=== PATIENT | female | born 2000 | race African-American/Black ===

== ENCOUNTER 2018-05-27 17:48 | Emergency (ER) | payer OTHER, SELFPAY ==
--- NOTE | 2018-05-27 19:45 | ER ---
Nurse's Notes [facility] Name: Hilda Celis Age: 17 yrs Sex: Female : 2000 Arrival Date: 05/27/2018 Time: 17:50 Bed 2 Private MD: Diagnosis: Conjunctivitis Presentation: 05/27 18:29 Presenting complaint: Patient states: Redness and slight inflammation to right eye. aj Transition of care: patient was not received from another setting of care. Onset of symptoms was May 27, 2018. Risk Assessment: Do you want to hurt yourself or someone else? Patient reports no desire to harm self or others. Initial Sepsis Screen: Does the patient meet any 2 criteria? No. Patient's initial sepsis screen is negative. Does the patient have a suspected source of infection? No. Patient's initial sepsis screen is negative. Care prior to arrival: None. 18:29 Method Of Arrival: Ambulatory aj 18:29 Acuity: JUAN 4 aj Triage Assessment: 18:30 General: Appears in no apparent distress. comfortable, Behavior is calm, cooperative, aj appropriate for age. Pain: Denies pain. EENT: Sclera/Cornea are reddened in outer aspect of conjuctiva of left eye, iris of left eye and inner aspect of conjunctiva of left eye. Neuro: Level of Consciousness is awake, alert, obeys commands, Oriented to person, place, time, situation, Appropriate for age. Respiratory: Airway is patent Respiratory effort is even, unlabored, Respiratory pattern is regular, symmetrical. Derm: Skin is intact, is healthy with good turgor, Skin is pink, warm \T\ dry. normal. 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 - Social history:: Smoking status: Patient/guardian denies using tobacco. - Ebola Screening: : Patient negative for fever greater than or equal to 101.5 degrees Fahrenheit, and additional compatible Ebola Virus Disease symptoms Patient denies exposure to infectious person Patient denies travel to an Ebola-affected area in the 21 days before illness onset No symptoms or risks identified at this time. Screenin:30 Abuse screen: Denies threats or abuse. Nutritional screening: No deficits noted. ea Tuberculosis screening: No symptoms or risk factors identified. Fall Risk None identified. Assessment: 19:28 General: Appears in no apparent distress. Behavior is calm, cooperative, appropriate ea for age. General: Pt reports the left eye felt irritated, denies pain to area at this time.. Pain: Denies pain. Neuro: Level of Consciousness is awake, alert, obeys commands, Oriented to person, place, time, situation. Cardiovascular: Patient's skin is warm and dry. Respiratory: Airway is patent Respiratory effort is even, unlabored, Respiratory pattern is regular, symmetrical. GI: No signs and/or symptoms were reported involving the gastrointestinal system. : No signs and/or symptoms were reported regarding the genitourinary system. EENT: Eyes redness noted to left eye.. Derm: No deficits noted. Musculoskeletal: Circulation, motion, and sensation intact. Vital Signs: 18:30 BP 127 / 78; Pulse 90; Resp 19; Temp 98.8; Pulse Ox 99% on R/A; Weight 44.91 kg; Height aj 5 ft. 1 in. (154.94 cm); 18:30 Body Mass Index 18.71 (44.91 kg, 154.94 cm) ED Course: 17:50 Patient arrived in ED. rg4 18:30 Triage completed. aj 18:30 Arm band placed on left wrist. Patient placed in waiting room, Patient notified of wait aj time. 19:24 Venkatesh Zaidi MD is Attending Physician. 19:24 Carissa Zaragoza, ERIC is Primary Nurse. ea 19:30 Patient has correct armband on for positive identification. Bed in low position. Call ea light in reach. 19:44 Jordan Mccord MD is Referral Physician. 19:52 No provider procedures requiring assistance completed. Patient did not have IV access lp1 during this emergency room visit. Administered Medications: No medications were administered Outcome: 19:45 Discharge ordered by . gs 19:52 Discharged to home ambulatory, with family. lp1 19:52 Condition: good 19:52 Discharge instructions given to patient, Instructed on discharge instructions, follow up and referral plans. medication usage, Demonstrated understanding of instructions, follow-up care, medications, Prescriptions given X 1. 19:53 Patient left the ED. lp1 Signatures: La Nena Mabry, RN RN aj Mecca Hernandez RN RN lp1 Alecia Rachel rg4 Carissa Zaragoza RN RN Venkatesh Johnston MD MD gs
--- NOTE | 2018-05-27 19:45 | EDPHYS ---
Physician Documentation [facility] Name: Hilda Celis Age: 17 yrs Sex: Female : 2000 Arrival Date: 05/27/2018 Time: 17:50 Bed 2 Private MD: ED Physician Venkatesh Zaidi HPI: 05/27 19:34 This 17 yrs old Black Female presents to ER via Ambulatory with complaints of Eye gs Problem. 19:34 The patient is experiencing matting or discharge, redness. Onset: The symptoms/episode gs began/occurred 2 day(s) ago. Duration: the symptoms are continuous. Aggravated by nothing. Alleviated by nothing. Associated signs and symptoms: Pertinent negatives: chills, fever. Severity of symptoms: At their worst the symptoms were moderate in the emergency department the symptoms have improved mildly. The patient has not experienced similar symptoms in the past. 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 - Social history:: Smoking status: Patient/guardian denies using tobacco. - Ebola Screening: : Patient negative for fever greater than or equal to 101.5 degrees Fahrenheit, and additional compatible Ebola Virus Disease symptoms Patient denies exposure to infectious person Patient denies travel to an Ebola-affected area in the 21 days before illness onset No symptoms or risks identified at this time. ROS: 19:34 All other systems are negative. gs Exam: 19:34 Head/Face: Normocephalic, atraumatic. ENT: Nares patent. No nasal discharge, no gs septal abnormalities noted. Tympanic membranes are normal and external auditory canals are clear. Oropharynx with no redness, swelling, or masses, exudates, or evidence of obstruction, uvula midline. Mucous membranes moist. Neck: Trachea midline, no thyromegaly or masses palpated, and no cervical lymphadenopathy. Supple, full range of motion without nuchal rigidity, or vertebral point tenderness. No Meningismus. Cardiovascular: Regular rate and rhythm with a normal S1 and S2. No gallops, murmurs, or rubs. Normal PMI, no JVD. No pulse deficits. Respiratory: Lungs have equal breath sounds bilaterally, clear to auscultation and percussion. No rales, rhonchi or wheezes noted. No increased work of breathing, no retractions or nasal flaring. Skin: Warm, dry with normal turgor. Normal color with no rashes, no lesions, and no evidence of cellulitis. Neuro: Awake and alert, GCS 15, oriented to person, place, time, and situation. Cranial nerves II-XII grossly intact. Motor strength 5/5 in all extremities. Sensory grossly intact. Cerebellar exam normal. Normal gait. 19:34 Constitutional: The patient appears alert, awake. 19:34 Eyes: Periorbital structures: swelling, that is mild, Pupils: no acute changes, Extraocular movements: no acute changes, Conjunctiva: injected, in the left eye, Corneas: are normal, Sclera: no appreciated abnormality, Anterior chamber: normal. Vital Signs: 18:30 BP 127 / 78; Pulse 90; Resp 19; Temp 98.8; Pulse Ox 99% on R/A; Weight 44.91 kg; Height aj 5 ft. 1 in. (154.94 cm); 18:30 Body Mass Index 18.71 (44.91 kg, 154.94 cm) MDM: 19:29 Patient medically screened. 19:34 Differential diagnosis: Corneal abrasion of Acute iritis of Data reviewed: vital signs, nurses notes. Response to treatment: the patient's symptoms have markedly improved after treatment, and as a result, I will discharge patient. Administered Medications: No medications were administered Disposition: 05/27/18 19:45 Discharged to Home. Impression: Conjunctivitis. - Condition is Stable. - Discharge Instructions: Bacterial Conjunctivitis. - Prescriptions for Ocuflox 0.3 % Ophthalmic Drops - instill 2 drops by OPHTHALMIC route every 6 hours for 5 days; 5 milliliter. - Work release form, Medication Reconciliation Form, Thank You Letter, Antibiotic Education, Prescription Opioid Use form. - Follow up: Jordan Mccord MD; When: 2 - 3 days; Reason: Re-evaluation by your physician. Signatures: La Nena Mabry RN RN aj Mecca Hernandez RN RN lp1 Venkatesh Zaidi MD MD Corrections: (The following items were deleted from the chart) 19:53 19:45 05/27/2018 19:45 Discharged to Home. Impression: Conjunctivitis. Condition is lp1 Stable. Forms are Medication Reconciliation Form, Thank You Letter, Antibiotic Education, Prescription Opioid Use. Follow up: Jordan Mccord; When: 2 - 3 days; Reason: Re-evaluation by your physician. gs
== END 2018-05-27 19:53 | disposition home or self-care (01) ==
LOC: ER 17:48
DX: H10.9 Unspecified conjunctivitis (principal)
CPT/HCPCS: 99282

== ENCOUNTER 2018-10-26 06:55 | Emergency (ER) | payer SELFPAY ==
--- OUTSIDE RECORDS SUMMARY | 2018-10-26 06:57 | XMS REPORT ---
:2000 [facility] Address [address] [place] [id number] Care Team Providers Name Role Phone Unavailable Unavailable Unavailable Problems This patient has no known problems. Allergies, Adverse Reactions, Alerts This patient has no known allergies or adverse reactions. Medications This patient has no known medications.
[2018-10-26] MEDS ORDERED: NA CHLORIDE 0.9% 1,000 ML ONE (07:33)
[2018-10-26 08:01] LABS: Absolute Lymphocytes (CBC) 1.4 K/uL (0.7-4.9); Absolute Monocytes 0.4 K/uL (0.1-1.3); Absolute Neutrophil 2.8 K/uL (1.8-8.0); Basophils % 0.6 % (0-1.3); Eosinophils % 0.7 % (0-4.4); Hematocrit 40.5 % (36.0-45.0); Lymphocytes % 29.5 % (15.3-44.8); MCH 30.7 pg (27.0-35.0); MCV 90.8 fL (80-100); MPV 9.4 fL (7.6-11.3); Monocytes % 8.9 % (3.3-12.3); RBC Red Blood Cell Count 4.46 M/uL (3.86-4.86)
[2018-10-26 08:13] LABS: ALT/SGPT 16 U/L (12-78); AST/SGOT 15 U/L (15-37); Albumin 3.9 g/dL (3.4-5.0); Alkaline Phosphatase 115 U/L (45-117); BUN Blood Urea Nitrogen 12 mg/dL (7-18); Bicarbonate 25 mmol/L (21-32); Bilirubin Direct 0.1 mg/dL (0-0.2); Bilirubin Total 0.4 mg/dL (0.2-1.0); Glucose Level 82 mg/dL (74-106); Lipase 92 U/L (73-393); Potassium 4.1 mmol/L (3.5-5.1); Protein, Total 7.5 g/dL (6.4-8.2); Sodium Level 138 mmol/L (136-145)
[2018-10-26] MEDS ORDERED: ONDANSETRON 4 MG/2 ML VIAL ONE (08:32)
[2018-10-26 08:41] LABS: HCG, Quantitative 67674 mIU/mL (1-3)
--- NOTE | 2018-10-26 08:53 | ER ---
Nurse's Notes [facility] Name: Hilda Celis Age: 18 yrs Sex: Female : 2000 Arrival Date: 10/26/2018 Time: 06:55 Bed 18 Private MD: Diagnosis: Abdominal tenderness; related conditions, unspecified, first trimester;Nausea;Nausea and vomiting;Threatened -small subchoronic hemorrhage;Urinary tract infection, site not specified Presentation: 10/26 07:03 Presenting complaint: Patient states: generalized abd pain and vomiting that began this ss morning. Pt reports that she is 8 weeks . Transition of care: patient was not received from another setting of care. Onset of symptoms was October 26, 2018. Risk Assessment: Do you want to hurt yourself or someone else? Patient reports no desire to harm self or others. Initial Sepsis Screen: Does the patient meet any 2 criteria? No. Patient's initial sepsis screen is negative. Does the patient have a suspected source of infection? No. Patient's initial sepsis screen is negative. Care prior to arrival: None. 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 - Social history:: Smoking status: Patient/guardian denies using tobacco. - Ebola Screening: : Patient denies exposure to infectious person Patient denies travel to an Ebola-affected area in the 21 days before illness onset. - Family history:: not pertinent. Screenin:38 Abuse screen: Denies threats or abuse. Nutritional screening: No deficits noted. em Tuberculosis screening: No symptoms or risk factors identified. Fall Risk None identified. Assessment: 07:30 General: Appears in no apparent distress. comfortable, Behavior is calm, cooperative, em Denies fever. Pain: Complains of pain in abdomen Pain currently is 8 out of 10 on a pain scale. Quality of pain is described as aching, Pain began 2 hours ago. Neuro: Level of Consciousness is awake, alert, obeys commands, Oriented to person, place, time, situation, Denies dizziness. Cardiovascular: Denies chest pain, shortness of breath, Capillary refill < 3 seconds Patient's skin is warm and dry. Respiratory: Airway is patent Respiratory effort is even, unlabored, Respiratory pattern is regular, symmetrical. GI: Abdomen is flat, Bowel sounds present X 4 quads. Abd is soft X 4 quads Abdomen is tender to palpation X 4 quads. Reports nausea, vomiting. : Urine is clear, Denies burning with urination, discharge, vaginal bleeding. EENT: No signs and/or symptoms were reported regarding the EENT system. Derm: Skin is intact, is healthy with good turgor, Skin is pink, warm \T\ dry. Musculoskeletal: Capillary refill < 3 seconds, Range of motion: intact in all extremities. 08:20 Reassessment: Patient appears in no apparent distress at this time. Patient and/or em family updated on plan of care and expected duration. Pain level reassessed. Patient is alert, oriented x 3, equal unlabored respirations, skin warm/dry/pink. reports nausea has improved, currently refuses nausea medication, provider notified, will hold medication Patient denies pain at this time. Patient states feeling better. Patient states symptoms have improved. 09:51 Reassessment: Patient appears in no apparent distress at this time. Patient and/or em family updated on plan of care and expected duration. Pain level reassessed. Patient is alert, oriented x 3, equal unlabored respirations, skin warm/dry/pink. Patient denies pain at this time. Patient states feeling better. Patient states symptoms have improved. Vital Signs: 07:03 BP 106 / 73; Pulse 81; Resp 14; Temp 98.0; Pulse Ox 100% on R/A; Weight 39.01 kg; ss Height 5 ft. 1 in. (154.94 cm); Pain 8/10; 08:27 BP 97 / 74; Pulse 68; Resp 18; Pulse Ox 100% on R/A; Pain 0/10; em 09:30 BP 105 / 73; Pulse 63; Resp 16; Pulse Ox 99% on R/A; Pain 0/10; em 07:03 Body Mass Index 16.25 (39.01 kg, 154.94 cm) ED Course: 06:55 Patient arrived in ED. ds1 07:03 Arm band placed on right wrist. ss 07:04 Triage completed. ss 07:08 Neal Franklin LVN is Primary Nurse. em 07:13 Rene Barnett MD is Attending Physician. saray 07:23 Urine collected: clean catch specimen, clear. em 07:38 Patient has correct armband on for positive identification. Placed in gown. Bed in low em position. Call light in reach. Adult w/ patient. 07:38 Initial lab(s) drawn, by me, sent to lab. Inserted saline lock: 22 gauge in right em antecubital area, using aseptic technique. Blood collected. 08:27 US Transvaginal Ob In Process Unspecified. EDMS 08:40 Ultrasound completed. Patient tolerated well. Notified ED Physician grecia. sg3 08:53 Allan Shen MD is Referral Physician. saray 09:51 No provider procedures requiring assistance completed. IV discontinued, intact, em bleeding controlled, No redness/swelling at site. Pressure dressing applied. Administered Medications: 07:37 Drug: NS 0.9% 1000 ml Route: IV; Rate: 1 bolus; Site: right antecubital; em 09:53 Follow up: IV Status: Completed infusion; IV Intake: 1000ml em 09:46 Drug: Zofran 4 mg Route: IVP; Site: right antecubital; 09:53 Follow up: Response: Medication administered at discharge. em 09:46 Drug: Rocephin - (cefTRIAXone) 1 grams Route: IVPB; Infused Over: 30 mins; Site: right ss antecubital; 09:53 Follow up: Response: Medication administered at discharge.; IV Status: Completed em infusion; IV Intake: 10ml Intake: 09:53 IV: 1000ml; Total: 1000ml. em 09:53 IV: 10ml; Total: 1010ml. em Outcome: 08:53 Discharge ordered by . saray 09:51 Discharged to home ambulatory, with family. em 09:51 Condition: good 09:51 Discharge instructions given to patient, family, Instructed on discharge instructions, follow up and referral plans. medication usage, Demonstrated understanding of instructions, follow-up care, medications, Prescriptions given X 4. 09:53 Patient left the ED. em Signatures: Dispatcher [employer] Rene Weston MD MD cha Munoz, Edgar, AUTOMATION MACHINE OPERATOR AUTOMATION MACHINE OPERATOR em David, Karin ds1 Gemma Galloway RN RN Nicole Restrepo 3 Corrections: (The following items were deleted from the chart) 08:30 07:30 GI: Abdomen is flat, Bowel sounds present X 4 quads. Abd is soft X 4 quads em Abdomen is tender to palpation X 4 quads. em
--- NOTE | 2018-10-26 08:53 | EDPHYS ---
Physician Documentation [facility] Name: Hilda Celis Age: 18 yrs Sex: Female : 2000 Arrival Date: 10/26/2018 Time: 06:55 Bed 18 Private MD: ED Physician Rene Barnett HPI: 10/26 07:47 This 18 yrs old Black Female presents to ER via Ambulatory with complaints of Abdominal saray Pain - 8 Wks Preg. 07:47 The patient presents with abdominal pain in the periumbilical area. Onset: The saray symptoms/episode began/occurred this morning, today. The patient presents to the emergency department with nausea, abdominal pain, of the right upper quadrant, left upper quadrant, right lower quadrant and left lower quadrant. Onset: The symptoms/episode began/occurred just prior to arrival, this morning, today. Possible causes: unknown, . The symptoms are aggravated by nothing. The symptoms are alleviated by food . The patient presents to the emergency department with. The estimated gestational age is 8 weeks. course: care: at a clinic, private OB physician. 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 - Social history:: Smoking status: Patient/guardian denies using tobacco. - Ebola Screening: : Patient denies exposure to infectious person Patient denies travel to an Ebola-affected area in the 21 days before illness onset. - Family history:: not pertinent. ROS: 07:47 Constitutional: Negative for fever, chills, and weight loss, Eyes: Negative for injury, saray pain, redness, and discharge, ENT: Negative for injury, pain, and discharge, Neck: Negative for injury, pain, and swelling, Cardiovascular: Negative for chest pain, palpitations, and edema, Respiratory: Negative for shortness of breath, cough, wheezing, and pleuritic chest pain, Back: Negative for injury and pain, : Negative for injury, bleeding, discharge, and swelling, MS/Extremity: Negative for injury and deformity, Skin: Negative for injury, rash, and discoloration, Neuro: Negative for headache, weakness, numbness, tingling, and seizure, Psych: Negative for depression, anxiety, suicide ideation, homicidal ideation, and hallucinations, Allergy/Immunology: Negative for hives, rash, and allergies, Endocrine: Negative for neck swelling, polydipsia, polyuria, polyphagia, and marked weight changes. 07:47 Abdomen/GI: Positive for abdominal pain, nausea and vomiting. Exam: 07:47 Constitutional: This is a well developed, well nourished patient who is awake, alert, saray and in no acute distress. Head/Face: Normocephalic, atraumatic. Eyes: Pupils equal round and reactive to light, extra-ocular motions intact. Lids and lashes normal. Conjunctiva and sclera are non-icteric and not injected. Cornea within normal limits. Periorbital areas with no swelling, redness, or edema. ENT: Nares patent. No nasal discharge, no septal abnormalities noted. Tympanic membranes are normal and external auditory canals are clear. Oropharynx with no redness, swelling, or masses, exudates, or evidence of obstruction, uvula midline. Mucous membranes moist. Neck: Trachea midline, no thyromegaly or masses palpated, and no cervical lymphadenopathy. Supple, full range of motion without nuchal rigidity, or vertebral point tenderness. No Meningismus. Chest/axilla: Normal chest wall appearance and motion. Nontender with no deformity. No lesions are appreciated. Cardiovascular: Regular rate and rhythm with a normal S1 and S2. No gallops, murmurs, or rubs. Normal PMI, no JVD. No pulse deficits. Respiratory: Lungs have equal breath sounds bilaterally, clear to auscultation and percussion. No rales, rhonchi or wheezes noted. No increased work of breathing, no retractions or nasal flaring. Back: No spinal tenderness. No costovertebral tenderness. Full range of motion. Skin: Warm, dry with normal turgor. Normal color with no rashes, no lesions, and no evidence of cellulitis. MS/ Extremity: Pulses equal, no cyanosis. Neurovascular intact. Full, normal range of motion. Neuro: Awake and alert, GCS 15, oriented to person, place, time, and situation. Cranial nerves II-XII grossly intact. Motor strength 5/5 in all extremities. Sensory grossly intact. Cerebellar exam normal. Normal gait. Psych: Awake, alert, with orientation to person, place and time. Behavior, mood, and affect are within normal limits. 07:47 Abdomen/GI: Inspection: gravid appearance, is noted, Bowel sounds: normal, Palpation: abdomen is soft and non-tender, Liver: no appreciated palpable abnormalities, Hernia: not appreciated. Vital Signs: 07:03 BP 106 / 73; Pulse 81; Resp 14; Temp 98.0; Pulse Ox 100% on R/A; Weight 39.01 kg; ss Height 5 ft. 1 in. (154.94 cm); Pain 8/10; 08:27 BP 97 / 74; Pulse 68; Resp 18; Pulse Ox 100% on R/A; Pain 0/10; em 09:30 BP 105 / 73; Pulse 63; Resp 16; Pulse Ox 99% on R/A; Pain 0/10; em 07:03 Body Mass Index 16.25 (39.01 kg, 154.94 cm) ss MDM: 07:13 Patient medically screened. [facility] 07:47 Data reviewed: vital signs, nurses notes, lab test result(s), radiologic studies, [facility] ultrasound. 10/26 07:18 Order name: Quantitative Hcg; Complete Time: 08:[address] [facility] 10/26 07:18 Order name: Abo/rh Typing [facility] 10/26 07:18 Order name: Basic Metabolic Panel; Complete Time: 08:[address] [facility] 10/26 07:18 Order name: CBC with Diff [facility] 10/26 07:18 Order name: LFT's; Complete Time: 08:[address] [facility] 10/26 07:18 Order name: Lipase; Complete Time: 08:[address] [facility] 10/26 07:18 Order name: US Transvaginal Ob [facility] 10/26 07:23 Order name: Urine Dipstick--Ancillary (enter results) 10/26 07:25 Order name: Urine --Ancillary (enter results) 10/26 08:53 Order name: Urine Culture [facility] 10/26 09:38 Order name: CBC Smear Scan EDMS 10/26 07:18 Order name: Urine Test (obtain specimen); Complete Time: 07:[address] [facility] 10/26 07:18 Order name: IV Saline Lock; Complete Time: 07:[address] [facility] 10/26 07:18 Order name: Labs collected and sent; Complete Time: 07:[address] [facility] 10/26 07:18 Order name: NPO; Complete Time: 07:[address] [facility] 10/26 07:18 Order name: Urine Dipstick-Ancillary (obtain specimen); Complete Time: 07:[address] [facility] Administered Medications: 07:37 Drug: NS 0.9% 1000 ml Route: IV; Rate: 1 bolus; Site: right antecubital; em 09:53 Follow up: IV Status: Completed infusion; IV Intake: 1000ml em 09:46 Drug: Zofran 4 mg Route: IVP; Site: right antecubital; ss 09:53 Follow up: Response: Medication administered at discharge. em :46 Drug: Rocephin - (cefTRIAXone) 1 grams Route: IVPB; Infused Over: 30 mins; Site: right ss antecubital; 09:53 Follow up: Response: Medication administered at discharge.; IV Status: Completed em infusion; IV Intake: 10ml Disposition: 10/26/18 08:53 Discharged to Home. Impression: Abdominal tenderness, related conditions, unspecified, first trimester, Nausea, Nausea and vomiting, Threatened - small subchoronic hemorrhage, Urinary tract infection, site not specified. - Condition is Stable. - Discharge Instructions: Abdominal Pain, Adult, Threatened Miscarriage, Urinary Tract Infection, Adult, First Trimester of , Vzza-xp-Phbr, Nausea and Vomiting, Adult, Wnur-kl-Sjbc, Urinary Tract Infection, Adult, Sphq-zl-Wkhh, Abdominal Pain, Adult, Vusv-nb-Lwzi, First Trimester of , Threatened Miscarriage, Nzoq-fg-Hprx, Pelvic Rest. - Prescriptions for Diclegis 10- 10 mg Oral tablet,delayed release (DR/EC) - take 1 tablet by ORAL route 3 times per day and 2 tablets at bedtime; 60 tablet. Vitamin 27- 0.8 mg Oral Tablet - take 1 tablet by ORAL route once daily; 30 tablet. Zofran 4 mg Oral Tablet - take 1 tablet by ORAL route every 12 hours As needed; 20 tablet. Augmentin 500- 125 mg Oral Tablet - take 1 tablet by ORAL route every 8 hours for 10 days; 15 tablet. - Medication Reconciliation Form, Thank You Letter, Antibiotic Education, Prescription Opioid Use form. - Follow up: Private Physician; When: 2 - 3 days; Reason: Recheck today's complaints, Continuance of care, Re-evaluation by your physician. Follow up: Allan Shen; When: 2 - 3 days; Reason: Recheck today's complaints, Re-evaluation by your physician. - Problem is new. - Symptoms have improved. Signatures: Dispatcher [employer] [facility] Rene Barnett MD MD cha Munoz, Edgar, HEARING CARE PRACTITIONER HEARING CARE PRACTITIONER Gemma Hilario RN RN ss Corrections: (The following items were deleted from the chart) 07:42 07:23 URINE FOR PROTEIN, RANDOM+CHEM UR.LAB.BRZ ordered. [facility] 09:53 08:53 10/26/2018 08:53 Discharged to Home. Impression: Abdominal tenderness; em related conditions, unspecified, first trimester; Nausea; Nausea and vomiting; Threatened - small subchoronic hemorrhage; Urinary tract infection, site not specified. Condition is Stable. Discharge Instructions: Abdominal Pain, Adult, First Trimester of , Bgjm-fk-Sqqq, Nausea and Vomiting, Adult, Nxgn-bs-Xfev, Abdominal Pain, Adult, Ymhg-bk-Uwuk, First Trimester of , Threatened Miscarriage, Threatened Miscarriage, Kyke-ob-Hdwz, Pelvic Rest. Prescriptions for Diclegis 10-10 mg Oral tablet,delayed release (DR/EC) - take 1 tablet by ORAL route 3 times per day and 2 tablets at bedtime; 60 tablet, Vitamin 27-0.8 mg Oral Tablet - take 1 tablet by ORAL route once daily; 30 tablet, Zofran 4 mg Oral Tablet - take 1 tablet by ORAL route every 12 hours As needed; 20 tablet. and Forms are Medication Reconciliation Form, Thank You Letter, Antibiotic Education, Prescription Opioid Use. Follow up: Private Physician; When: 2 - 3 days; Reason: Recheck today's complaints, Continuance of care, Re-evaluation by your physician. Follow up: Allan Shen; When: 2 - 3 days; Reason: Recheck today's complaints, Re-evaluation by your physician. Problem is new. Symptoms have improved. saray
[2018-10-26] MEDS ORDERED: CEFTRIAXONE/SWI 1gm 1 GM/10 ML SYR ONE (09:12)
[2018-10-26 09:41] LABS: Blood Morphology Comment NOT SEEN (NOT SEEN); Platelet Estimate ADEQ; Urine White Blood Cell Casts OK
--- NOTE | 2018-10-26 11:06 | RAD REPORT ---
EXAM DESCRIPTION: US - Transvaginal OB - 10/26/2018 8:37 am CLINICAL HISTORY: ABD CRAMPING, COMPARISON: No comparisons FINDINGS: A single gestational sac is seen within the uterus. The shape of the sac is within normal limits for gestational age. Within the sac is a single pole with crown-rump length of 12 mm, co rrelating to estimated gestational age of 7 weeks 0 days. Estimated date of delivery is 06/14/2019. Heart rate is 159 BPM. The placenta is not yet developed due to early gestational age. The maternal adnexa and ovaries are within normal limits. Normal Doppler blood flow was demonstrated to both ovaries. 16 x 5 mm subchorionic bleed is seen along the right aspect of the gestational sac. IMPRESSION: Single live early intrauterine gestation with estimated gestational age of 7 weeks 0 day s, REYNA 06/14/2019. 16 x 5 mm subchorionic bleed along the right aspect of the gestational sac.
[2018-10-26 11:23] LABS: Urine Blood NEGATIVE (NEG); Urine Glucose NEGATIVE (NEG); Urine Protein NEGATIVE (NEG); Urine Specific Gravity 1.015 (1.005-1.030)
[2018-10-26 20:14] LABS: Urine Specific Gravity 1.015 (1.005-1.030)
== END 2018-10-26 09:53 | disposition home or self-care (01) ==
LOC: ER 06:55
DX: O26.891 Other specified pregnancy related conditions, first trimester (principal); R10.819 Abdominal tenderness, unspecified site; O21.9 Vomiting of pregnancy, unspecified; O23.41 Unspecified infection of urinary tract in pregnancy, first trimester; O20.0 Threatened abortion; Z3A.01 Less than 8 weeks gestation of pregnancy
CPT/HCPCS: 36415; 76817; 80048; 80076; 81003; 81025; 83690; 84702; 85025; 86900; 86901; 87086; 87088; 96361; 96374; 96375; 99284; J0696; J2405; J7030

== ENCOUNTER 2019-07-08 18:12 | Emergency (ER) | payer OTHER, SELFPAY ==
--- NOTE | 2019-07-08 18:33 | EDPHYS ---
Physician Documentation [facility] Name: Hilda Celis Age: 19 yrs Sex: Female : 2000 Arrival Date: 07/08/2019 Time: 18:17 Bed 27 Private MD: ED Physician Jake Alxeandre HPI: 07/08 18:28 This 19 yrs old Black Female presents to ER via Ambulatory with complaints of Suture rn recheck. 18:28 The patient presents with feels sutures from vaginal laceration are irritated and not rn sure if needs to be removed. Hasn't followed up with OB, denies discharge or fever. . Onset: The symptoms/episode began/occurred at an unknown time. Modifying factors: The symptoms are alleviated by nothing, the symptoms are aggravated by rubbing. Severity of symptoms: At their worst the symptoms were mild, in the emergency department the symptoms are unchanged. The patient has not experienced similar symptoms in the past. The patient has been recently seen by a physician:. 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 - Social history:: Smoking status: Patient/guardian denies using tobacco. - Ebola Screening: : No symptoms or risks identified at this time. - Family history:: not pertinent. - Hospitalizations: : No recent hospitalization is reported. ROS: 18:28 Constitutional: Negative for fever, chills, and weight loss, : + vaginal irritation rn from suture Exam: 18:28 Constitutional: Thin female, no acute distress Female : Normal external genitalia. rn NO laceration or sutures identified. Patient unable to point out what she saw earlier, states now feels and looks normal. Vital Signs: 18:18 BP 149 / 99; Pulse 69; Resp 16; Temp 97.8; Pulse Ox 98% on R/A; Weight 40.82 kg; Height la1 5 ft. 1 in. (154.94 cm); 18:18 Body Mass Index 17.01 (40.82 kg, 154.94 cm) la1 MDM: 18:21 Patient medically screened. rn 18:28 Differential diagnosis: irritation from suture, broken suture. Data reviewed: vital rn signs, nurses notes, and as a result, I will discharge patient. Counseling: I had a detailed discussion with the patient and/or guardian regarding: the historical points, exam findings, and any diagnostic results supporting the discharge/admit diagnosis, the need for outpatient follow up, to return to the emergency department if symptoms worsen or persist or if there are any questions or concerns that arise at home. Special discussion: I discussed with the patient/guardian in detail that at this point there is no indication for admission to the hospital. It is understood, however, that if the symptoms persist or worsen the patient needs to return immediately for re-evaluation. Based on the history and exam findings, there is no indication for further emergent testing or inpatient evaluation. I discussed with the patient/guardian the need to see the OB Gyne specialist for further evaluation of the symptoms. ED course: Encouraged to f/u with OB for standard post- f/u. . Administered Medications: No medications were administered Disposition: 07/08/19 18:32 Discharged to Home. Impression: Encounter for general adult medical examination without abnormal findings. - Condition is Stable. - Medication Reconciliation Form, Thank You Letter, Antibiotic Education, Prescription Opioid Use form. - Follow up: Private Physician; When: As needed; Reason: Recheck today's complaints, Re-evaluation by your physician. - Problem is new. - Symptoms have improved. Signatures: Jake Alexandre MD MD rn Attema, Lee, RN RN la1 Zehra Martinez RN RN ca1 Corrections: (The following items were deleted from the chart) 18:47 18:32 07/08/2019 18:32 Discharged to Home. Impression: Encounter for general adult ca1 medical examination without abnormal findings. Condition is Stable. Forms are Medication Reconciliation Form, Thank You Letter, Antibiotic Education, Prescription Opioid Use. Follow up: Private Physician; When: As needed; Reason: Recheck today's complaints, Re-evaluation by your physician. Problem is new. Symptoms have improved. rn
--- NOTE | 2019-07-08 18:33 | ER ---
Nurse's Notes [facility] Name: Hilda Celis Age: 19 yrs Sex: Female : 2000 Arrival Date: 07/08/2019 Time: 18:17 Bed 27 Private MD: Diagnosis: Encounter for general adult medical examination without abnormal findings Presentation: 07/08 18:17 Presenting complaint: Patient states: I had an episiotomy on 05/31 and I feel like its la1 irritated. Transition of care: patient was not received from another setting of care. Onset of symptoms was July 08, 2019. Risk Assessment: Do you want to hurt yourself or someone else? Patient reports no desire to harm self or others. Initial Sepsis Screen: Does the patient meet any 2 criteria? No. Patient's initial sepsis screen is negative. Does the patient have a suspected source of infection? No. Patient's initial sepsis screen is negative. Care prior to arrival: None. 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 - Social history:: Smoking status: Patient/guardian denies using tobacco. - Ebola Screening: : No symptoms or risks identified at this time. - Family history:: not pertinent. - Hospitalizations: : No recent hospitalization is reported. Screenin:30 Abuse screen: Denies threats or abuse. Denies injuries from another. Nutritional ca1 screening: No deficits noted. Tuberculosis screening: No symptoms or risk factors identified. Fall Risk None identified. Assessment: 18:30 General: Appears in no apparent distress. comfortable, Behavior is calm, cooperative, ca1 appropriate for age. Pain: Denies pain. Neuro: Level of Consciousness is awake, alert, obeys commands, Oriented to person, place, time, situation. Cardiovascular: Heart tones S1 S2 present Capillary refill < 3 seconds Patient's skin is warm and dry. Respiratory: Airway is patent Respiratory effort is even, unlabored, Respiratory pattern is regular, symmetrical, Breath sounds are clear bilaterally. GI: Abdomen is flat, non-distended, Bowel sounds present X 4 quads. Abd is soft and non tender X 4 quads. : Genitalia appear normal. EENT: No deficits noted. No signs and/or symptoms were reported regarding the EENT system. Derm: Skin is intact, is healthy with good turgor, Skin is pink, warm \T\ dry. Musculoskeletal: Circulation, motion, and sensation intact. Capillary refill < 3 seconds, Range of motion:. Vital Signs: 18:18 BP 149 / 99; Pulse 69; Resp 16; Temp 97.8; Pulse Ox 98% on R/A; Weight 40.82 kg; Height la1 5 ft. 1 in. (154.94 cm); 18:18 Body Mass Index 17.01 (40.82 kg, 154.94 cm) la1 ED Course: 18:17 Patient arrived in ED. mr 18:18 Triage completed. la1 18:18 Arm band placed on left wrist. la1 18:21 Jake Alexandre MD is Attending Physician. rn 18:30 Patient has correct armband on for positive identification. Placed in gown. Bed in low ca1 position. Call light in reach. Side rails up X 1. Pulse ox on. NIBP on. 18:43 Zehra Martinez, RN is Primary Nurse. ca1 18:45 No provider procedures requiring assistance completed. Patient did not have IV access ca1 during this emergency room visit. Administered Medications: No medications were administered Outcome: 18:32 Discharge ordered by . rn 18:46 Discharged to home ambulatory. ca1 18:46 Condition: stable 18:46 Discharge instructions given to patient, Instructed on discharge instructions, follow up and referral plans. Demonstrated understanding of instructions, follow-up care. 18:47 Patient left the ED. ca1 Signatures: Ligia Prather Jake Alexandre MD MD rn Attema, Lee, RN RN la1 Zehra Martinez RN RN ca1
== END 2019-07-08 18:47 | disposition home or self-care (01) ==
LOC: ER 18:12
DX: Z00.00 Encounter for general adult medical examination without abnormal findings (principal); Z98.890 Other specified postprocedural states
CPT/HCPCS: 99283

== ENCOUNTER 2020-03-12 10:25 | Emergency (ER) | payer OTHER, SELFPAY ==
--- OUTSIDE RECORDS SUMMARY | 2020-03-12 10:27 | XMS REPORT ---
:2000 Author Organization [facility] t Address [address] [place] [place] [id number] Care Team Providers Name Role Phone Unavailable Unavailable Unavailable Problems This patient has no known problems. Allergies, Adverse Reactions, Alerts This patient has no known allergies or adverse reactions. Medications This patient has no known medications.
--- OUTSIDE RECORDS SUMMARY | 2020-03-12 10:28 | XMS REPORT | Summary of Care ---
:2000 Author Organization [facility] - Health Address [address] [place] [id number] Care Team Providers Name Role Phone Laura Watkins Primary Care Provider Autumn Bustillos Insurance Hmo Encounter Details Date Type Department Care Team Description 05/12/2019 Patient Secure Msg [facility] MyChart Message s Doctor Unassigned, [address] [facility] [place] [phone] [facility] [phone] [place] [address] Allergies No Known Allergiesdocumented as of this encounter (statuses as of 06/13/2019) Medications No known medicationsdocumented as of this encounter (statuses as of 06/13/2019) Active Problems Problem Noted Date Single live 06/01/2019 care and examination immediately after deli very 06/01/2019 Status post vacuum-assisted vaginal delivery 9 39 weeks gestation of 05/31/2019 Pre-eclampsia in third trimester 05/31/2019 Chlamydia infection affecting in third trime ster 05/12/2019 Sickle cell trait 01/16/2019 Insufficient weight gain during in second tr imester 01/15/2019 Supervision of high risk in third trimester 11/19/2018 Comments Yes documented as of this encounter (statuses as of 06/13/2019) Resolved Problems Problem Noted Date Resolved Date Pain of round ligament during 04/27/2019 05/31/2019 Primigravida in second trimester 11/19/2018 019 Nausea and vomiting during prior to 22 weeks 11/1901/15/2019 gestation Thrombocytopenia affecting 10/25/2018 Urinary tract infection in mother during first trimester of 10/24/2018 11/19/2018 Underweight 10/21/2018 11/19/2018 documented as of this encounter (statuses as of 06/13/2019) Immunizations Name Administration Dates Next Due Influenza Virus Vaccine Quad .5 mL IM 6+ MO 10/21/2018 Tdap 03/18/2019 documented as of this encounter Social History Tobacco Use Types Packs/Day Years Used Date Never Smoker Smokeless Tobacco: Never Used Alcohol Use Drinks/Week oz/Week Comments No Comments Yes Sex Assigned at Date Recorded Not on file Job Start Date Occupation Industry Not on file Not on file Not on file Travel History Travel Start Travel End No recent travel history available. documented as of this encounter Last Filed Vital Signs Not on filedocumented in this encounter Plan of Treatment Date Type Specialty Care Team Description 06/22/2019 Routine Visit OB Satellites Blaire Harris, PLUSH BRUSHER [address] [id number] [phone] Health Maintenance Due Date Last Done Comments PNEUMOCOCCAL 0-64 YEARS 2004 COMBINED SERIES (1 of 3 - PCV13) MENINGOCOCCAL B VACCINES (1 2008 of 2 - Risk Bexsero 2-dose series) HPV VACCINES (1 - Female 2013 3-dose series) PAP SMEAR 2019 INFLUENZA VACCINE 07/19/2019 10/21/2018 CHLAMYDIA SCREENING 05/31/2020 05/31/2019, 05/25/2019, 05/11/2019, Additional history exists DTaP,Tdap,and Td Vaccines (2 03/18/2029 03/18/2019 - Td) MENINGOCOCCAL VACCINE Aged Out No longer eligible based on patient 's age to complete this topic documented as of this encounter Results Not on filedocumented in this encounter Insurance Payer Benefit Plan / Subscriber ID Effective Phone Address T ype Group Dates [employer] 2018-Pres [address] Medicaid [facility] ent [id number] [place] [address] documented as of this encounter Advance Directives Name Relationship Healthcare Agent Relationship Co mmunication Ana Velma Parent Primary healthcare agent
--- OUTSIDE RECORDS SUMMARY | 2020-03-12 10:28 | XMS REPORT | Summary of Care ---
:2000 Author Organization [facility] Address [address] [place] [address] Care Team Providers Name Role Phone Laura Watkins Primary Care Provider Autumn Bustillos Insurance Hmo Reason for Referral (Routine) Status Reason Specialty Diagnoses / Referred By Referred To Procedures Contact Contact New Request Maternal Diagnoses Supervision of high risk , antepartum Anderson Harris Medicine Procedures CONSULT MATERNAL MEDICINE ULTRASOUND Preferred Location: [facility] [address] [place] [address] Reason for Visit Reason Comments Initial Visit Encounter Details Date Type Department Care Team Description [facility] upervision of high risk , antepartum (Primary Dx); Visit [facility] History of pre-eclampsia in prior pregna ncy, currently in first trimester; [address]; [place], [place] Sickle cell trait; [id number] [place], [place] Underweight; [phone] Nausea and vomiting during lucien or to 22 weeks gestation [phone] Allergies No Known Allergiesdocumented as of this encounter (statuses as of 01/28/2020) Medications Medication Sig Dispensed Refills Start Date End Date Status vit Take 1 Packet 30 Each 6 01/28/2020 Ac tive [id number]-ykxcy-dha by mouth (SELECT-OB + DHA) 29 daily. mg iron-1 mg -250 mg combo packIndications: Supervision of high risk , antepartum CITRANATAL 90 DHA, TK 1 PACKET 9 05/11/2019 01/28/20 20 Discontinued ALGAL OIL, 90 mg PO QD iron-1 mg -50 mg-300 mg combo pack acetaminophen 325 mg Take 2 0 2019 01/28/20 20 Discontinued tabletIndications: tablets by 39 weeks gestation mouth every 6 of , (six) hours Pre-eclampsia in as needed for third trimester, Pain (scale care and 1-3). examination immediately after delivery benzocaine-menthol, Apply to 56 g 0 2019 0 Discontinued DERMOPLAST, 20-0.5 % area(s) as topical needed sprayIndications: 39 (Perineum weeks gestation of discomfort). , Pre-eclampsia in third trimester, care and examination immediately after delivery ibuprofen 600 mg Take 1 tablet 30 tablet 1 2019 01/28/20 20 Discontinued tabletIndications: by mouth 39 weeks gestation every 6 (six) of , hours as Pre-eclampsia in needed for third trimester, Pain (scale care and 4-6). examination immediately after delivery NIFEdipine ER 30 mg Take 1 tablet 30 tablet 1 06/03/201901/27 Discontinued tabletIndications: by mouth 39 weeks gestation daily. of , Pre-eclampsia in third trimester, care and examination immediately after delivery documented as of this encounter (statuses as of 01/28/2020) Active Problems Problem Noted Date Multiparity 01/28/2020 History of pre-eclampsia in prior , currently in first 01/28/2020 trimester Sickle cell trait 01/16/2019 Supervision of high risk , antepartum 019 Nausea and vomiting during prior to 22 weeks gestation 11/19/2018 Underweight 10/21/2018 Estimated Date of Delivery Comments Yes 08/24/2020 Based on last menstr ual period of 11/18/2019 (Exact Date) documented as of this encounter (statuses as of 01/28/2020) Resolved Problems Problem Noted Date Resolved Date Single live 06/01/2019 01/28/2020 care and examination immediately after delivery 0 06/01/2019 01/28/2020 Status post vacuum-assisted vaginal delivery 06/01/2019 01/28/2020 39 weeks gestation of 05/31/2019 01/28/20 20 Pre-eclampsia in third trimester 05/31/2019 020 Chlamydia infection affecting in third trimester 0 05/12/2019 01/28/2020 Pain of round ligament during 04/27/2019 05/31/2019 Insufficient weight gain during in second 01/15/20 19 01/28/2020 trimester Primigravida in second trimester 11/19/2018 019 Thrombocytopenia affecting 10/25/2018 Urinary tract infection in mother during first trimester of 10/24/2018 11/19/2018 documented as of this encounter (statuses as of 01/28/2020) Immunizations Name Administration Dates Next Due Influenza Virus Vaccine Quad .5 mL IM 6+ MO 01/28/2020, 02/2018 Tdap 03/18/2019 documented as of this encounter Social History Tobacco Use Types Packs/Day Years Used Date Never Smoker Smokeless Tobacco: Never Used Alcohol Use Drinks/Week oz/Week Comments No Estimated Date of Delivery Comments Yes 08/24/2020 Based on last menstr ual period of 11/18/2019 (Exact Date) Sex Assigned at Date Recorded Not on file Job Start Date Occupation Industry Not on file Not on file Not on file Travel History Travel Start Travel End No recent travel history available. documented as of this encounter Last Filed Vital Signs Vital Sign Reading Time Taken Comments Blood Pressure 115/79 01/28/2020 8:58 AM CDT Pulse 66 01/28/2020 8:58 AM CDT Temperature 36.3 C (97.4 F) 01/28/2020 8:58 AM CDT Respiratory Rate 16 01/28/2020 8:58 AM CDT Oxygen Saturation - - Inhaled Oxygen Concentration - - Weight 38.8 kg (85 lb 9 oz) 01/28/2020 8:58 AM CDT Height 154.9 cm (5' 1") 01/28/2020 8:58 AM CDT Body Mass Index 16.17 01/28/2020 8:58 AM CDT documented in this encounter Patient Instructions Patient InstructionsOpal Estevez, ERIC - 01/28/2020 8:00 AM CDT Clinical Breast Exam Many health organizations recommend a yearly clinical breast exam. This exam may be done by a senior producer, family healthcare provider, nurse practitioner, nurse outreach specialist, or specially trained nurse. Yearly breast exams help tomake surethat breast conditions are found early. Your healthcare providers role A healthcare professional knows the tests and follow-up care needed if a problem is found. Your clinical exam is also a great time to ask questions about breast self-exams. You can find out if yourechecking your breasts in the best way. Or you may want to ask how , breast implants, or breast reduction surgery affect the way you should check your breasts. Diagnostic tests If a clinical exam reveals a breast change, you may have other tests to find out more. These tests may include: Mammography. A low-dose X-ray of your breast tissue. Ultrasound. An imaging test that uses sound waves to create images of your breast. Biopsy. A small amount of breast tissue is removed by needle or by a cut (incision). The tissue is then checked under a microscope. Guidelines for having clinical breast exams The [employer] recommends that starting at age 29, you should have a clinical breast exam every 1 to 3 years. After age 40, have a clinical breast exam each year. If youre at higher risk for breast cancer, you may need exams more often. Risk factors for breast cancer may include: Being over 50 or postmenopausal Having a family history of breast cancer Having the BRCA1 or BRCA2 gene mutation or certain other gene mutations Having more menstrual periods due to starting menstruation early(before age 12) or having a late menopause (after age 55) Having no pregnancies Having a first after age 30 Being obese Having a history of radiation treatment to your chest area Exposure to STORMY during your mother's Not being active Drinking too much alcohol Having dense breast tissue Taking hormone therapy after menopause Other health organizations have different recommendations. Talk with your healthcare provider about what is best for you. [employer] last reviewed this educational content on 06/18/201719990589-0313 [employer]. [address] [place] [address], [place] [address]. All rights reserved. This information is not intended as a substitute for professional medical care. Always follow your healthcare professional's instructions. Breast Health: Breast Self-Awareness What is breast self-awareness? Breast self-awareness is knowing how your breasts normally look and feel. Your breasts change as yougo through different stages of your life. So its important to learn what is normal for your breasts. Knowing about your breasts helps you spot any changes in them right away. Tell your healthcare provider about any changes. Why is breast self-awareness important? Many experts now say that women should focus on breast self-awareness instead of doing a breast self-examination (BSE). These experts include the [employer] and the [employer]. Some experts even advise not teaching women to do a BSE. Thats because research hasnt shown a clear benefit to doing BSEs. Breast self-awareness is different than a BSE. It isnt about following a certain method and schedule. Its about knowing what's normal for your breasts. That way you can spot even small changes right away. If you see any changes, tell your healthcare provider. Changes to look for Call your healthcare provider if you find any changes in your breasts that worry you. These changes may be: A lump Nipple discharge other than breastmilk, especially if it's bloody Swelling A change in size or shape Skin changes, such as redness, thickening, or dimpling of the skin Swollen lymph nodes in the armpit Nipple problems, such as pain or redness If you find a lump Call your provider if you find lumpiness in one breast. Also call if you feel something different inthe tissue or feel a definite lump. Sometimes lumpiness may be due to menstrual changes. But there may be reason for concern. Your provider may want to see you right away if you have: Nipple discharge that is bloody Skin changes on your breast, such as dimpling or puckering Its okay to be upset if you find a lump. Be sure to call your provider right away. Remember that most breast lumps are benign. This means they are not cancer. [employer]page last reviewed this educational content on 06/18/201719990779-8146 [employer]. [address] [place] [address], [place] [address]. All rights reserved. This information is not intended as a substitute for professional medical care. Always follow your healthcare professional's instructions. Understanding STDs When it comes to sex, nothing is risk-free. Any sexual contact with the penis, vagina, anus, or mouth can spread a sexually transmitted disease (STD). The only sure way to prevent STDs is abstinence (not having sex). But there are ways to make sex safer. Use a latex condom each time you have sex. And choose your partner wisely. Use condoms for safer sex If you have sex, latex condoms provide the best protection against STDs. Latex condoms stop the exchange of body fluids that carry certain STDs. They also limit contact with affected skin. Be aware though, a condom doesnt cover all skin. So, affected skin that is not covered can still transfer disease. But youre safer with a condom than without one. Use a condom even if you use other control. While control methods like the pill or IUD help prevent , they do not protect against STDs. Choose the right condom Condoms made of latex prevent disease best. If youre allergic to latex, use polyurethane condoms instead. Male condoms fit over the penis. Female condoms line the vagina. Before buying a condom, read the label to be sure it prevents disease. Some novelty condoms dont. The right lubricant helps Buy lubricated condoms or use lubricant. This provides greater comfort and reduces the risk of condom breakage. Use only water-based lubricants. Dont use oil, lotion, or petroleum jelly. They can weaken the condom, causing breakage. Also, you may want to choose lubricants without nonoxynol-9. Its now known that this spermicide does not prevent disease and may cause irritation. Use condoms correctly For condoms to work, they must be used the right way. Keep these tips in mind: Use a new latex condom each time you have sex. Slip the condom on the penis before any contact ismade. When ready to withdraw, hold the rim of the condom as the penis pulls out. This prevents the condom from slipping off. Check the expiration date before using a condom. Dont store condoms in places that can get hot, such as a car or a wallet that is carried in a back pocket. Get to know your partner Safer sex is a process. It involves getting to know your partner and making informed choices. Ask each other how many partners you have had in the past, and how many you have now. Find out if either ofyou has an STD. If you decide to have sex, use a condom each time. Dont stop using condoms unlessyoure sure neither of you has other partners and youve both been tested to confirm you donthave STDs. Then stay free of disease by having sex only with each other (monogamy). Keep your cool Dont let alcohol or drugs cloud your judgment. They could lead you to have sex with someone you wouldnt have chosen if you were sober. Or, you might forget to use a condom. If you do plan to havesex, keep a latex condom with you. Dont wait until youre in the heat of passion to try to findone. Consider abstinence The only way to be sure you wont get an STD is to abstain from sex. Abstinence is a choice that many people make at some point in their lives. Maybe you want to wait until you are sure youre ready before you have sex. Maybe youd like a break from the responsibilities of sex for a while. Or maybe you just want to know your partner better before taking the next step. Abstinence is a choice youcan make now to protect your future. Specpage last reviewed this educational content on 10/18/201619994365-5017 [employer]. [address] [place] [address]. All rights reserved. This information is not intended as a substitute for professional medical care. Always follow your healthcare professional's instructions. Understanding HIV and AIDS It's important to know how HIV can get into your body and what happens once its there. Then youll be better prepared to protect yourself or others against this virus. A person with HIV can look and feel perfectly healthy. But that person can give HIV to others as soon as he or she is infected with the virus. Having unsafe or unprotected sex or sharing needles puts you at risk for HIV. Talk with your healthcare provider about ways to protect yourself or a loved one from getting HIV. How HIV infection progresses After HIV enters the body, it attacks the immune system in the stages below. A person with HIV can infect others once the virus gets into the blood. HIV with no symptoms. A person with HIV may have no symptoms for years. The only sign of infection may be a positive blood test for HIV 2 weeks to 3 months or later after HIV enters the body. HIV with symptoms. Some people develop an illness similar to mono (mononucleosis) 2 to 4 weeks after the virus enters the body. This is called acute retroviral syndrome. Symptoms may include swollen lymph glands, chills, fever, night sweats, weakness, weight loss, skin rashes, mouth ulcers, or sore t hroat. Symptoms may be mild or the person can feel quite sick. Even without treatment the symptoms almost always go away in a few days or up to 2 to 3 weeks. Then the person has no symptoms, often for years. But over time the immune system starts to get weaker and symptoms start appearing. People at this stage may have a yeast infection in the mouth (oral thrush), shingles, skin problems, pneumonia, diarrhea that keeps coming back, or weight loss. AIDS. AIDS is the most advanced stage of HIV infection, when the immune system is severely weakened.Certain rare diseases and cancers that normally would not occur, now can occur because the body can no longer fight them well enough. It is often these diseases that cause in people with AIDS. HIV may also directly attack the brain and nervous system. This causes seizures and loss of memory and body movement. It also affects many other parts of the body. This leads to problems such as anemia, low white blood cell count, diarrhea, belly pain, skin problems, and many others. How HIV enters the body HIV is carried in semen, vaginal fluid, blood, and breastmilk. During sex, HIV can enter the body. It gets in through the fragile tissue and linings, sores, or cuts in or around the vagina, penis, anus, and mouth. During drug use, tattooing, or body piercing, the virus can enter the blood through an infected needle. A mother who has HIV can infect her child during , childbirth, and . Specpage last reviewed this educational content on 04/18/201919997693-8162 The [employer]. [address] [place] [address]. All rights reserved. This information is not intended as a substitute for professional medical care. Always follow your healthcare professional's instructions. The Range of Pap Test Results When your Pap test is sent to the lab, the lab studies your cell samples and reports any abnormal cell changes. Your healthcare provider can discuss these changes with you. In some cases, an abnormal Pap test is due to an infection. More serious cell changes range from dysplasia to cancer. Talk to your healthcare provider about your Pap test. Normal results Cervical cells, even normal ones, are always changing. As they mature, normal squamous cells move from deeper layers within the cervix. Over time, these cells flatten and cover the surface of the cervix. Within the cervical canal, the cells are different. These glandular cells are taller and not as flat as the cells on the surface of the cervix. When a Pap test sample shows healthy cells of both types, the results are negative. Keep having Pap tests as often as directed. Abnormal results A positive Pap test result means some cells in the sample showed abnormal changes. These results aregrouped by the type of cell change and the location, or extent, of the changes. Depending on the results, you may need further testing. Inflammation. Noncancerous changes are present. They may be due to normal cell repair. Or, they may be caused by an infection, such as HPV or yeast. Further testing may be needed. (Also called reactive cellular changes.) Atypical squamous cells. Test results are unclear. Cells on the surface of the cervix show changes, but their significance is not yet known. Testing for HPV and other sexually transmitted infections(STIs) may be needed. Treatment may be required. (Reported as ASC-US or ASC-H.) Atypical glandular cells. Cells lining the cervical canal show abnormal changes. Further testing is likely. You may also have treatment to destroy or remove problem cells. (Reported as AGC.) Mild dysplasia. Cells show distinct changes. More testing or HPV typing may be done. You may alsohave treatment to destroy or remove problem cells. (Reported as low-grade ASHLY or GABRIEL 1.) Moderate to severe dysplasia. Cells show precancerous changes. Or, noninvasive cancer (carcinoma in situ) may be present. Treatment to destroy or remove problem cells is likely. (Reported as high-grade ASHLY or GABRIEL 2 or GABRIEL 3.) Cancer. Different types of cancer may be detected by your Pap test. More tests to assess the cancer's extent are likely. The type of treatment will depend on the test results and other factors, suchas age and health history. (Reported as squamous cell carcinoma, endocervical adenocarcinoma in situ, or adenocarcinoma.) Specpage last reviewed this educational content on 06/18/201719998379-1953 The [employer]. [address] [place] [address], [place] [address]. All rights reserved. This information is not intended as a substitute for professional medical care. Always follow your healthcare professional's instructions. Understanding USDA MyPlate The [employer] (U.S. Department of Agriculture) has guidelines to help you make healthy food choices. These are called MyPlate. MyPlate shows the food groups that make up healthy meals using the image of a place setting. Before you eat, think about the healthiest choices for what to put onto your plate or into your cup or bowl. To learn more about building a healthy plate, visit www.choosemyplate.gov. The food groups Fruits. Any fruit or 100% fruit juice counts as part of the Fruit Group. Fruits may be fresh, canned, frozen, or dried, and may be whole, cut-up, or pureed. Make half your plate fruits and vegetables. Vegetables. Any vegetable or 100% vegetable juice counts as a member of the Vegetable Group. Vegetables may be fresh, frozen, canned, or dried. They can be served raw or cooked and may be whole, cut-up, or mashed. Make half your plate fruits and vegetables. Grains. All foods made from grains are part of the Grains Group. These include wheat, rice, oats,cornmeal, and barley such as bread, pasta, oatmeal, cereal, tortillas, and grits. Grains should be no more than a quarter of your plate. At least half of your grains should be whole grains. Protein. This group includes meat, poultry, seafood, beans and peas, eggs, processed soy products(like tofu), nuts (including nut butters), and seeds. Make protein choices no more than a quarter ofyour plate. Meat and poultry choices should be lean or low fat. Dairy. All fluid milk products and foods made from milk that contain calcium, like yogurt and cheese, are part of the Dairy Group. (Foods that have little calcium, such as cream, butter, and cream cheese, are not part of the group.) Most dairy choices should be low-fat or fat-free. Oils. These are fats that are liquid at room temperature. They include canola, corn, olive, soybean, and sunflower oil. Foods that are mainly oil include mayonnaise, certain salad dressings, and soft margarines. You should have only 5 to 7 teaspoons of oils a day. You probably already get this muchfrom the food you eat. [employer] last reviewed this educational content on 06/18/201719996201-1499 [employer]. [address] [place] [address]. All rights reserved. This information is not intended as a substitute for professional medical care. Always follow your healthcare professional's instructions. documented in this encounter [employer] Anderson Harris, [employer] MATERIALS ENGINEER - 01/28/2020 8:00 AM CDT Chief complaint: Chief Complaint Patient presents with Initial Visit HPI CC: Initial Visit Hilda Celis is a 19 year old, , Black or female. Patient's last menstrual period was 11/18/2019 (exact date). She is 10w1d with an intrauterine . Her Estimated Date of Delivery: 08/24/20. She is being seen today for her first obstetrical visit. Patient complains of nausea and vomiting. She reports +FM and denies contractions, LOF and bleeding today. Patient denies current or past physical, sexual or emotional abuse. OB History Para Term AB Living 2 1 1 1 SAB TAB Ectopic Multiple Live Births 0 1 # Outcome Date GA Lbr [place]/2nd Weight Sex Delivery Anes PTL Lv 2 Current 1 Term 05/31/19 39w0d 5 lb 11.7 oz (2.6 kg) M Vag-Vacuum EPI N GM Complications: Other (See Comments), Histories OB History Para Term AB Living 2 1 1 1 SAB TAB Ectopic Multiple Live Births 0 1 # Outcome Date GA Lbr [place]/2nd Weight Sex Delivery Anes PTL Lv 2 Current 1 Term 05/31/19 39w0d 5 lb 11.7 oz (2.6 kg) M Vag-Vacuum EPI N GM Complications: Other (See Comments), Past Medical History: Diagnosis Date Chlamydia infection affecting in third trimester 05/12/2019 Pre-eclampsia in third trimester 05/31/2019 Primigravida in second trimester 11/19/2018 STD (sexually transmitted disease) hx of chlamydia treated in 2015 Thrombocytopenia affecting 10/25/2018 Family History Problem Relation Age of Onset No Significant Medical Problems Mother No Significant Medical Problems Father Arthritis NoFHx Asthma NoFHx defects NoFHx Breast Cancer NoFHx Colon Cancer NoFHx Ovarian Cancer NoFHx Uterine Cancer NoFHx Cancer NoFHx Depression NoFHx Diabetes NoFHx Genetic NoFHx High cholesterol NoFHx Heart NoFHx Hypertension NoFHx Mental retardation NoFHx Psychiatry NoFHx Osteoporosis NoFHx Neurological NoFHx Family Status Relation Name Status Mo (Not Specified) Fa (Not Specified) NoFHx (Not Specified) History reviewed. No pertinent surgical history. Social History Socioeconomic History Marital status: Single Spouse name: Not on file Number of children: Not on file Years of education: Not on file Highest education level: Not on file Occupational History Not on file Social Needs Financial resource strain: Not on file Food insecurity: Worry: Not on file Inability: Not on file Transportation needs: Medical: Not on file Non-medical: Not on file Tobacco Use Smoking status: Never Smoker Smokeless tobacco: Never Used Substance and Sexual Activity Alcohol use: No Drug use: No Sexual activity: Yes Partners: Male control/protection: None Comment: last sexual intercourse 11/14/2019 Lifestyle Physical activity: Days per week: Not on file Minutes per session: Not on file Stress: Not on file Relationships Social connections: Talks on phone: Not on file Gets together: Not on file Attends episcopal service: Not on file Active member of club or organization: Not on file Attends meetings of clubs or organizations: Not on file Relationship status: Not on file Intimate partner violence: Fear of current or ex partner: Not on file Emotionally abused: Not on file Physically abused: Not on file Forced sexual activity: Not on file Other Topics Concern Not on file Social History Narrative Pt lives with mother and child. Pt denies history of abuse. Social History Substance and Sexual Activity Sexual Activity Yes Partners: Male control/protection: None Comment: last sexual intercourse 11/14/2019 Genetic Screen Autism / Mental Retardation: No Hossein Disease: No Congenital Heart Defect: No Cystic Fibrosis: No Down Syndrome: No Familial Dysautonomia: No Hemophilia or other Blood Disorders: No Claudia Chorea: No Maternal Metabolic Disorder--specify (eg. Type 1 Diabetes, PKU): No Muscular Dystrophy: No Neural Tube Defect: No Recurrent Loss or a Stillbirth: No Sickle Cell Disease or Trait: (!) Yes(son) Héctor Sachs: No Teratological Substances (specify type & strength/dose) since LMP: No Thalassemia: No Other Inherited Genetic or Chromosomal Disorder (specify): No Defects Not Listed (specify): no No Significant History of Genetic Disorders: No Significant History of Genetic Disorders Labs Labs are pending. Radiology No new radiology. Allergies Darleccia has No Known Allergies. Medications Hilda has a current medication list which includes the following prescription(s): vit 34-shqs-ubaom-dha. Review of Systems Constitutional: Negative for activity change, appetite change, fatigue, unexpected weight change, weight gain and weight loss. HENT: Negative for sore throat. Eyes: Negative for visual disturbance. Respiratory: Negative for cough and shortness of breath. Breasts: Negative for discharge, mass, pain and unequal size. Cardiovascular: Negative for chest pain, palpitations and leg swelling. Gastrointestinal: Positive for nausea and vomiting. Negative for abdominal pain, anal bleeding, blood in stool, constipation, diarrhea and rectal pain. Genitourinary: Negative for bladder incontinence, dysuria, urgency, flank pain, vaginal bleeding, vaginal discharge, genital sores, vaginal pain and pelvic pain. Skin: Negative for color change and rash. Neurological: Negative. Negative for dizziness, syncope and headaches. Psychiatric/Behavioral: Negative for confusion, self-injury and sleep disturbance. The patient is not nervous/anxious. Hematological: Negative for cold intolerance and heat intolerance. Endocrine: Negative for hair loss, cold intolerance, heat intolerance, weight gain and weight loss. BP 115/79 (BP Location: Right arm, Patient Position: Sitting, BP CUFF SIZE: Adult Medium) | Pulse 66 | Temp 36.3 C (97.4 F) (Oral) | Resp 16 | Ht 5' 1" (1.549 m) | Wt 85 lb 9 oz (38.8 kg) | LMP 11/18/2019 (Exact Date) | BMI 16.17 kg/m Pregravid BMI: Could not be calculated Physical Exam Vitals reviewed. Constitutional: She is oriented to person, place, and time. She appears well- developed, well-nourished and well-groomed. She has no deformities. Neck: No tenderness and no mass. No thyroid nodules and no thyromegaly palpated. Cardiovascular: Regular rate and rhythm. No murmur auscultated. Pulmonary/Chest: Breath sounds clear to auscultation. Normal inspiratory effort. Abdominal: Abdomen is soft. No mass palpated. No tenderness present. There is no guarding. Neuro/Psychiatric: She has a normal mood and affect. She is oriented to person, place, and time. Skin: Skin normal. No lesion and no rash present. Tattoo present on left thigh Breast: Right breast exhibits no mass, no nipple discharge and no tenderness. Left breast exhibits no mass, no nipple discharge and no tenderness. Normal left breast and normal right breast Rectal: normal rectum External genitalia: Normal external genitalia appropriate for age. Normal hair distribution. No labial lesion. Graduate Teaching Associate present for the exam: JOYCE [employer] student Vagina:Normal vagina. No lesion inspected. No abnormal vaginal discharge found. Cervix: Normal cervix. No lesion. No tenderness and no discharge present. Closed/50/-3 Uterus: Uterus is normal size and non-tender. 8cm Normal uterus Adnexa: Right adnexa without tenderness or mass. Left adnexa without tenderness or mass. Normal leftadnexa and normal right adnexa Anus/perineum: Normal perineum. PHYSICAL: General Exam: HEENT: Normal Thyroid: Normal Lymph Node: Normal Neurological: Normal Abdomen: Normal Skin: Normal Extremities: Normal Pelvic Exam: Vulva: Normal Vagina: Normal Graduate Teaching Associate present for the exam: JOYCE [employer] student present Cervix: Normal Uterus: 8cm Weeks Adnexa: Normal Spines: Average Sacrum: Concave Subpubic Arch: Normal Assessment/Plan Supervision of high risk , antepartum (primary encounter diagnosis) History of pre-eclampsia in prior , currently in first trimester Multiparity Comment: Routine Visit Plan: POCT TEST, POCT URINALYSIS W/O SPECIFIC GRAVITY, CBC WITH DIFF, GC & CHLAMYDIA AMPLIFIED ASSAY, HEPATITIS B SURFACE ANTIGEN, HIV 1/2 AG-AB WITH REFLEX, POCT URINALYSIS W SPECIFIC GRAVITY, WORKUP, BLOOD BANK, RUBELLA SCREEN (FENG) IGG, GALV ONLY - SYPHILIS IGG/IGM, URINE CULTURE, VZV ANTIBODY SCREEN, CONSULT MATERNAL MEDICINE ULTRASOUND Preferred Location: [facility] vit 09-ovaz-vlvtq-dha (SELECT-OB + DHA) 29 mg iron-1 mg -250 mg combo pack, PAP Smear-Liquid Based, FLU VACC([id number]), 6+ MONTHS, IM, QUAD (FLUZONE/FLULAVAL/FLUARIX) Denies zika virus risk, signs and symptoms such as fever,rash,joint pain, conjunctivitis (red eyes), muscle pain, headaches; outside [place] travel to areas affected by zika, and FOB exposure to zika.Educated on use of mosquito repellent. Sickle cell trait Comment: H/O sickle cell trait Plan:will need urine culture at every visit Underweight Comment: BMI: 16.17 Plan: patient educated eating every 2-3 hours for proper growth. Nausea and vomiting during prior to 22 weeks gestation Comment: patient complains of nausea and vomiting Plan: patient given resources for taking OTC. Return to clinic in 4 weeks. Discussed treatment options. Medications as ordered. Reviewed patient instructions and provided printed copy. This visit did not involve counseling and coordination that comprised more than 50% of the visit time. LUCA Gonzalez 01/28/2020 11:57 AM Oapl Estevez RN - 01/28/2020 8:00 AM CDTPatient is 19 year old female here for current . Patient is . 1) Previous delivery methods vaginal 2) Patient is not experiencing cramping 3) Patient is not experiencing bleeding. 4) LMP 11/18/2019 5) Last Pap was: N/a Results: N/a 6) Have you had a flu vaccine this season? Desires today 7) PPD candidate? no 8) Patient complains of Constipation 9) Patient denies history of physical, emotional, or sexual abuse. Patient states she currently feels safe at home. documented in this encounter Plan of Treatment Date Type Specialty Care Team Description 01/29/2020 Carton Marker Machine Visit [facility] Lab, [facility] 02/29/2020 Routine Visit OB [facility]ell[facility] Blaire Harris FNP [address] [address] [phone] Name Type Priority Associated Diagnoses Order S chedule CBC WITH DIFF LAB Routine Supervision of high risk Ex pected: 01/28/2020, , antepartum s: 01/27/2021 GC & CHLAMYDIA LAB Routine Supervision of high risk E xpected: 01/28/2020, AMPLIFIED ASSAY , antepartum Exp ires: 01/27/2021 HEPATITIS B SURFACE LAB Routine Supervision of high r isk Expected: 01/28/2020, ANTIGEN , antepartum s: 01/27/2021 HIV 1/2 AG-AB WITH LAB Routine Supervision of high ri sk Ordered: 01/28/2020 REFLEX , antepartum POCT URINALYSIS W LAB Routine Supervision of high ris k 20 Occurrences starting SPECIFIC GRAVITY , antepartum until 11/23/2020 WORKUP, BLOOD LAB Routine Supervision of hig h risk Expected: 01/28/2020, BANK , antepartum s: 01/27/2021 RUBELLA SCREEN (FENG) LAB Routine Supervision of hig h risk Expected: 01/28/2020, IGG , antepartum s: 01/27/2021 GALV ONLY - SYPHILIS LAB Routine Supervision of high risk Expected: 01/28/2020, IGG/IGM , antepartum s: 01/27/2021 URINE CULTURE LAB Routine Supervision of high risk Ex pected: 01/28/2020, , antepartum s: 01/27/2021 VZV ANTIBODY SCREEN LAB Routine Supervision of high r isk Expected: 01/28/2020, , antepartum s: 01/27/2021 PAP Smear-Liquid Based LAB Routine Supervision of hig h risk Expected: 01/28/2020, , antepartum s: 01/27/2021 Health Maintenance Due Date Last Done Comments CHLAMYDIA SCREENING 05/31/2020 05/31/2019, 05/25/2019, 05/11/2019, Additional history exists HPV VACCINES (1 - Female 01/18/2021 Postpon ed from 2-dose series) 2009 (Preg nant or ) WELL CARE VISIT: -01/26/2021 Postponed from YEARS (yearly) 2010 (Preg nant or ) MENINGOCOCCAL B VACCINES (1 01/27/2021 Post poned from of 2 - Risk Bexsero 2-dose 06/02 ( or series) ) PAP SMEAR 01/27/2023 01/28/2020 DTaP,Tdap,and Td Vaccines 03/18/2029 03/18/2019 (2 - Td) INFLUENZA VACCINE Completed 01/28/2020, 10/21/2018 MENINGOCOCCAL VACCINE Aged Out No longer eligible based on patient 's age to complete this topic PNEUMOCOCCAL 0-64 YEARS Aged Out No longe r eligible COMBINED SERIES based on patient 's age to complete this topic documented as of this encounter Procedures Procedure Name Priority Date/Time Associated Diagnosis Comme nts FLU VACC Routine 01/28/2020 10:31 Supervision of high ([id number]), 6+ AM CDT risk , MONTHS, IM, QUAD antepartum POCT URINALYSIS W/O Routine 01/28/2020 8:53 Supervision of hi gh Results for this SPECIFIC GRAVITY AM CDT risk , procedur e are in antepartum the results section. POCT TEST Routine 01/28/2020 8:53 Supervision of hi gh Results for this AM CDT risk , procedure ar e in antepartum the results section. documented in this encounter Results POCT URINALYSIS W/O SPECIFIC GRAVITY (01/28/2020 8:53 AM CDT) Pathologist Sig nature POCT PH U 6 5 - 8 mg/dl POCT U LEUK EST Trace Negative - Negative POCT U NIT Neg Negative - Negative POCT U PROT Trace Negative - Negative POCT U GLU Neg Negative - Negative POCT U KETONE None Negative - Negative POCT U BLD Neg Negative - Negative Specimen Urine - URINE, CLEAN CATCH POCT TEST (01/28/2020 8:53 AM CDT) Pathologist Sig nature POCT PREG Positive On board controls acceptable Yes with C Line POCT PREG LOT # POCT PREG TEST DATE Specimen Urine - URINE, CLEAN CATCH documented in this encounter Visit Diagnoses Diagnosis Supervision of high risk , ante - Primary History of pre-eclampsia in prior pregna ncy, currently in first trimester Multiparity Sickle cell trait Sickle-cell trait Underweight Nausea and vomiting during lucien or to 22 weeks gestation documented in this encounter Insurance Payer Benefit Plan / Subscriber ID Effective Phone Address T ype Group Dates [employer] xxxxxxxxx 2018-Pres [address] Medicaid [facility] ent [id number] [place] [address] documented as of this encounter Advance Directives Name Relationship Healthcare Agent Relationship Co mmunication Ana Guillen Primary healthcare agent
--- OUTSIDE RECORDS SUMMARY | 2020-03-12 10:28 | XMS REPORT | Summary of Care ---
:2000 Author Organization [facility] - Health Address [address] [place] [address] Care Team Providers Name Role Phone Laura Watkins Primary Care Provider Autumn Bustillos Insurance Hmo Encounter Details Date Type Department Care Team Description 01/28/2020 Orders Only [facility] Doctor Unassigned, No [address] [facility] [place] [address] [address] [place] [address] Allergies No Known Allergiesdocumented as of this encounter (statuses as of 01/28/2020) Medications Medication Sig Dispensed Refills Start Date End Date Status CITRANATAL 90 DHA, TK 1 PACKET PO 9 05/11/2019 Active ALGAL OIL, 90 mg QD iron-1 mg -50 mg-300 mg combo pack acetaminophen 325 mg Take 2 tablets 0 2019 Active tabletIndications: 39 by mouth every 6 weeks gestation of (six) hours as , needed for Pain Pre-eclampsia in third (scale 1-3). trimester, care and examination immediately after delivery benzocaine-menthol, Apply to 56 g 0 2019 Active DERMOPLAST, 20-0.5 % area(s) as topical needed (Perineum sprayIndications: 39 discomfort). weeks gestation of , Pre-eclampsia in third trimester, care and examination immediately after delivery ibuprofen 600 mg Take 1 tablet by 30 tablet 1 2019 Active tabletIndications: 39 mouth every 6 weeks gestation of (six) hours as , needed for Pain Pre-eclampsia in third (scale 4-6). trimester, care and examination immediately after delivery NIFEdipine ER 30 mg Take 1 tablet by 30 tablet 1 06/03/2019 Active tabletIndications: 39 mouth daily. weeks gestation of , Pre-eclampsia in third trimester, care and examination immediately after delivery documented as of this encounter (statuses as of 01/28/2020) Active Problems Problem Noted Date Single live 06/01/2019 care and examination immediately after deli very 06/01/2019 Status post vacuum-assisted vaginal delivery 9 39 weeks gestation of 05/31/2019 Pre-eclampsia in third trimester 05/31/2019 Chlamydia infection affecting in third trime ster 05/12/2019 Sickle cell trait 01/16/2019 Insufficient weight gain during in second tr imester 01/15/2019 Supervision of high risk in third trimester 11/19/2018 documented as of this encounter (statuses [...] Used Alcohol Use Drinks/Week oz/Week Comments No Sex Assigned at Date Recorded Not on file Job Start Date Occupation Industry Not on file Not on file Not on file Travel History Travel Start Travel End No recent travel history available. documented as of this encounter Last Filed Vital Signs Not on filedocumented in this encounter Plan of Treatment Health Maintenance Due Date Last Done Comments MENINGOCOCCAL B VACCINES (1 2008 of 2 - Risk Bexsero 2-dose series) HPV VACCINES (1 - Female 2009 2-dose series) WELL CARE VISIT: 12-21 YEARS 2010 (yearly) PAP SMEAR 2019 INFLUENZA VACCINE (#1) 2019 10/21/2018 CHLAMYDIA SCREENING 05/31/2020 05/31/2019, 05/25/2019, 05/11/2019, [...] Name Priority Date/Time Associated Diagnosis Comme nts ASSIGNMENT OF BENEFITS Routine 01/28/2020 8:45 AM CDT documented in this encounter Results Not on filedocumented in this encounter Insurance Payer Benefit Plan / Subscriber ID Effective Phone Address T ype Group Dates [employer] xxxxxxxxx 2018-Pres [address] [place] [id number] [place] [address] documented as of this encounter Advance Directives Name Relationship Healthcare Agent Relationship Co mmunication Ana Guillen Primary healthcare agent
--- OUTSIDE RECORDS SUMMARY | 2020-03-12 10:29 | XMS REPORT | Summary of Care ---
:1998 Author Organization [facility] Address [address] [place] [address] Care Team Providers Name Role Phone Laura Watkins Primary Care Provider Autumn Bustillos Insurance Hmo Reason for Visit Reason Comments Other Encounter Details Date Type Department Care Team Description [facility]2020 [facility]an, ELECTRICAL ENGINEERING TECHNICIAN Other [address] [facility] [address] [place] [address] [place] [address] [phone] Allergies No Known Allergiesdocumented as of this encounter (statuses as of 02/02/2020) Medications Medication Sig Dispensed Refills Start Date End Date Status vit Take 1 Packet by 30 Each 6 01/28/2020 Active 74-hyyi-qbjzr-dha mouth daily. (SELECT-OB + DHA) 29 mg iron-1 mg -250 mg combo packIndications: Supervision of high risk , antepartum documented as of this encounter (statuses as of 02/02/2020) Active Problems Problem Noted Date Multiparity 01/28/2020 [...] as of this encounter (statuses as of 02/02/2020) Resolved Problems Problem Noted Date Resolved Date [...] as of this encounter (statuses as of 02/02/2020) Immunizations Name Administration Dates Next Due Influenza [...] Treatment Date Type Specialty Care Team Description 02/04/2020 Operators Teacher [facility] Routine Visit OB Blaire Carrera, ELECTRICAL ENGINEERING TECHNICIAN [address] [place], [place] [address] [phone] Health Maintenance Due Date Last Done Comments HPV VACCINES (1 - Female 01/18/2021 Postpon ed from 2-dose series) 2009 (Preg nant or ) WELL CARE VISIT: -01/26/2021 Postponed from YEARS (yearly) 2010 (Preg nant or ) CHLAMYDIA SCREENING 01/27/2021 01/28/2020, 05/31/2019, 05/25/2019, Additional history exists MENINGOCOCCAL B VACCINES (1 01/27/2021 Post poned [...] OF xxxxxxxxx 2018-Pres P O BOX Medicaid [facility] ent [id number] [place] [address] documented as of this encounter Advance Directives Name Relationship Healthcare Agent Relationship Co mmunication Ana Guillen Primary healthcare agent
--- OUTSIDE RECORDS SUMMARY | 2020-03-12 10:29 | XMS REPORT | Summary of Care ---
:1998 Author Organization [facility] Address [address] [place] [address] Care Team Providers Name Role Phone Laura Watkins Primary Care Provider Autumn Bustillos Insurance Hmo Encounter Details Date Type Department Care Team Description 01/29/2020 Patient Secure [facility]- Laura Watkins [place] [facility] [address] [place] [address] [facility] [phone] [place], [place] [address] [phone] Allergies No Known Allergiesdocumented as of this encounter (statuses as of 01/29/2020) Medications Medication Sig Dispensed Refills Start Date End Date Status vit Take 1 Packet by 30 Each 6 01/28/2020 Active 29-svgk-lsmgr-dha mouth daily. (SELECT-OB + DHA) 29 mg iron-1 mg -250 mg combo packIndications: Supervision of high risk , antepartum documented as of this encounter (statuses as of 01/29/2020) Active Problems Problem Noted Date Multiparity 01/28/2020 [...] as of this encounter (statuses as of 01/29/2020) Resolved Problems Problem Noted Date Resolved Date [...] as of this encounter (statuses as of 01/29/2020) Immunizations Name Administration Dates Next Due Influenza [...] Treatment Date Type Specialty Care Team Description 02/29/2020 Routine Visit [facility] Blaire Harris, LOSS PREVENTION INVESTIGATOR [address] [address] [phone] Health Maintenance Due Date Last Done Comments CHLAMYDIA SCREENING 05/31/2020 05/31/2019, 05/25/2019, 05/11/2019, Additional history exists HPV VACCINES (1 - Female 01/18/2021 Postpon ed from 2-dose series) 2009 (Preg nant or ) WELL CARE VISIT: 12-01/26/2021 Postponed from YEARS (yearly) 2010 (Preg nant [...] [address] [place] [id number] [place] [address] documented as of this encounter Advance Directives Name Relationship Healthcare Agent Relationship Co mmunication Ana Guillen Primary healthcare agent
--- OUTSIDE RECORDS SUMMARY | 2020-03-12 10:29 | XMS REPORT | Summary of Care ---
:2000 Author Organization [facility] Address [address] [place] [address] Care Team Providers Name Role Phone Laura Watkins Primary Care Provider Autumn Bustillos Insurance Hmo Reason for Referral (Routine) Status Reason Specialty Diagnoses / Referred By Referred To Procedures Contact Contact New Request Maternal Diagnoses Supervision of high risk , antepartum Anderson Harris Medicine Procedures CONSULT MATERNAL MEDICINE ULTRASOUND Preferred Location: [facility] Knowles [address] [place] [address] Reason for Visit Reason Comments Initial Visit Encounter Details Date Type Department Care Team Description 01/28/2020 [facility] Harris upervision of high risk , antepartum (Primary Dx); Visit [facility] Know[facility] History of pre-eclampsia in prior pregna ncy, currently in first trimester; [address] [place] [address]; [place] Sickle cell trait; [address] [place], [place] Underweight; [phone] Nausea and vomiting during lucien or to 22 weeks gestation [phone] Allergies No Known Allergiesdocumented as of this encounter (statuses as of 01/28/2020) Medications Medication Sig Dispensed Refills Start Date End Date Status vit Take 1 Packet 30 Each 6 01/28/2020 Ac tive 50-ufgz-idczh-dha by mouth (SELECT-OB + DHA) 29 daily. [...] This exam may be done by a ager tender, family healthcare provider, nurse practitioner, nurse cotton cleaner, or specially trained nurse. Yearly breast exams [...] Guidelines for having clinical breast exams The [place] College of Obstetricians and Gynecologists recommends that [...] provider about what is best for you. BioBeats last reviewed this educational content on 06/18/201719998162-4058 The [employer]. [address] [place] [address], [place] [address]. All rights reserved. This information is not [...] breast self-examination (BSE). These experts include the [place] [employer] Society and the [place] Congress of Obstetricians and Gynecologists. Some experts [...] benign. This means they are not cancer. BioBeats last reviewed this educational content on 06/18/201719997693-2021 The [employer], [employer]. [address] [place] [address], [place] [address]. All rights reserved. This information is not [...] youcan make now to protect your future. BioBeats last reviewed this educational content on 10/18/201619999560-9433 The [employer]. [address] [place] [address]. All rights reserved. This information is not [...] her child during , childbirth, and . BioBeats last reviewed this educational content on 04/18/201919997382-2679 The [employer]. [address] [place] [address]. All rights reserved. This information is not [...] carcinoma, endocervical adenocarcinoma in situ, or adenocarcinoma.) BioBeats last reviewed this educational content on 06/18/201719999100-1302 The [employer]. [address] [place] [address], [place] [address]. All rights reserved. This information is not intended as a substitute for professional medical care. Always follow your healthcare professional's instructions. Understanding USDA MyPlate The ISVS (U.S. Department of Agriculture) has guidelines to [...] get this muchfrom the food you eat. Nifty After FiftyNelson last reviewed this educational content on 06/18/201719991890-22[address] [employer] [place] [address]. All rights reserved. This information is not intended as a substitute for professional medical care. Always follow your healthcare professional's instructions. documented in this encounter Progress Notes Anderson Harris, BAND SHOVER - 01/28/2020 8:00 AM CDT Chief complaint: [...] file Gets together: Not on file Attends anabaptism service: Not on file Active member of [...] list which includes the following prescription(s): vit 36-dksv-axooe-dha. Review of Systems Constitutional: Negative for activity [...] age. Normal hair distribution. No labial lesion. Specialty Foods Cook present for the exam: JOYCE Palafox student [...] Normal Pelvic Exam: Vulva: Normal Vagina: Normal Specialty Foods Cook present for the exam: JOYCE Palafox student [...] SCREEN, CONSULT MATERNAL MEDICINE ULTRASOUND Preferred Location: [facility] vit 89-dstg-fkabx-dha (SELECT-OB + DHA) 29 mg iron-1 mg -250 mg combo pack, PAP Smear-Liquid Based, FLU VACC([id number]), 6+ MONTHS, IM, QUAD (FLUZONE/FLULAVAL/FLUARIX) Denies zika [...] visit time. LUCA Gonzalez 01/28/2020 11:57 AM Opal Estevez RN - 01/28/2020 8:00 AM CDTPatient [...] Date Type Specialty Care Team Description 01/29/2020 Taker Off Braker Machine Visit [facility], [facility] 02/29/2020 Routine Visit [facility] Blaire Harris FNP [address] [place] [address] 15 [phone] Name Type Priority Associated Diagnoses Date/Ti me CBC WITH DIFF LAB Routine Supervision of high risk 1:01 PM , antepartum CDT GC & CHLAMYDIA AMPLIFIED LAB Routine Supervision of h igh risk 01/28/2020 1:09 PM ASSAY , antepartum CDT HEPATITIS B SURFACE LAB Routine Supervision of high r isk 01/28/2020 1:01 PM ANTIGEN , antepartum CDT HIV 1/2 AG-AB WITH REFLEX LAB Routine Supervision of high risk 01/28/2020 1:01 PM , antepartum CDT RUBELLA SCREEN (FENG) LAB Routine Supervision of hig h risk 01/28/2020 1:01 PM IGG , antepartum CDT GALV ONLY - SYPHILIS LAB Routine Supervision of high risk 01/28/2020 1:01 PM IGG/IGM , antepartum CDT URINE CULTURE LAB Routine Supervision of high risk 1:09 PM , antepartum CDT VZV ANTIBODY SCREEN LAB Routine Supervision of high r isk 01/28/2020 1:01 PM , antepartum CDT PAP Smear-Liquid Based LAB Routine Supervision of hig h risk 01/28/2020 1:09 PM , antepartum CDT CBC WITH DIFFERENTIAL LAB Routine Supervision of high risk 01/28/2020 1:01 PM , antepartum CDT Name Type Priority Associated Diagnoses Order S chedule CBC WITH DIFF LAB Routine Supervision of high risk Ex pected: 01/28/2020, , antepartum s: 01/27/2021 GC & CHLAMYDIA LAB Routine Supervision of high risk E xpected: 01/28/2020, AMPLIFIED ASSAY , antepartum Exp ires: 01/27/2021 HEPATITIS B SURFACE LAB Routine Supervision of high r isk Expected: 01/28/2020, ANTIGEN , antepartum s: 01/27/2021 POCT URINALYSIS W LAB Routine Supervision of [...] VZV ANTIBODY SCREEN LAB Routine Supervision of r isk Expected: 01/28/2020, , antepartum s: 01/27/2021 PAP Smear-Liquid Based LAB Routine Supervision of [facility] h risk Expected: 01/28/2020, , antepartum s: [...] FLU VACC Routine 01/28/2020 10:31 Supervision of [facility] ([id number]), 6+ AM CDT risk , MONTHS, IM, [...] OF xxxxxxxxx 2018-Pres P O BOX Medicaid [facility] ent [address] [place] [address] documented as of this encounter Advance Directives Name Relationship Healthcare Agent Relationship Co mmunication Ana Carreon Parent Primary healthcare agent
--- OUTSIDE RECORDS SUMMARY | 2020-03-12 10:29 | XMS REPORT | Summary of Care ---
:1998 Author Organization [facility] Address [address] [place] [address] Care Team Providers Name Role Phone Laura Watkins Primary Care Provider Autumn Bustillos Insurance Hmo Reason for Referral (Routine) Status Reason Specialty Diagnoses / Referred By Referred To Procedures Contact Contact New Request Maternal Diagnoses Supervision of high risk , antepartum Anderson Harris Medicine Procedures CONSULT MATERNAL MEDICINE ULTRASOUND Preferred Location: [facility] [address] [place] [address] Reason for Visit Reason Comments Initial Visit Encounter Details Date Type Department Care Team Description [facility] upervision of high risk , antepartum (Primary Dx); Visit [facility] Know[facility] History of pre-eclampsia in prior pregna ncy, currently in first trimester; [address] [place] [address]; [place], [place] Sickle cell trait; [address] [place], [place] Underweight; [phone] [address] Nausea and vomiting during lucien or to 22 weeks gestation [phone] Allergies No Known Allergiesdocumented as of this encounter (statuses as of 01/28/2020) Medications Medication Sig Dispensed Refills Start Date End Date Status vit Take 1 Packet 30 Each 6 01/28/2020 Ac tive 22-iifb-dnjrr-dha by mouth (SELECT-OB + DHA) 29 daily. [...] This exam may be done by a hand polisher, family healthcare provider, nurse practitioner, nurse loan interviewer, or specially trained nurse. Yearly breast exams [...] Guidelines for having clinical breast exams The [place] College of Obstetricians and Gynecologists recommends that [...] provider about what is best for you. Advaxis last reviewed this educational content on 06/18/201719990416-5292 The Novel [employer]. [address] [place] [address], [place] [address]. All rights reserved. This information is not [...] breast self-examination (BSE). These experts include the [place] Cancer Society and the [place] Congress of Obstetricians and Gynecologists. Some experts [...] benign. This means they are not cancer. Advaxis last reviewed this educational content on 06/18/201719993651-6942 The [employer], [employer]. [address] [place] [address], [place] [address]. All rights reserved. This information is not [...] youcan make now to protect your future. Advaxis last reviewed this educational content on 10/18/201619990458-5935 The Novel [employer]. [address] [place] [address]. All rights reserved. This information is not [...] her child during , childbirth, and . Advaxis last reviewed this educational content on 04/18/201919992660-3582 The [employer]. [address] [place] [address]. All rights reserved. This information is not [...] carcinoma, endocervical adenocarcinoma in situ, or adenocarcinoma.) Advaxis last reviewed this educational content on 06/18/201719997223-9647 The [employer]. [address] [place] [address], [place] [address]. All rights reserved. This information is not intended as a substitute for professional medical care. Always follow your healthcare professional's instructions. Understanding USDA MyPlate The Okeyko (U.S. Department of Agriculture) has guidelines to [...] get this muchfrom the food you eat. Open PlacesNelson last reviewed this educational content on 06/18/201719996583-5083 [employer]. [address] [place] [address]. All rights reserved. This information is not intended as a substitute for professional medical care. Always follow your healthcare professional's instructions. documented in this encounter Progress Notes Anderson Harris, FOSTER PARENT - 01/28/2020 8:00 AM CDT Chief complaint: [...] file Gets together: Not on file Attends presybeterian service: Not on file Active member of [...] list which includes the following prescription(s): vit 32-dofn-ucwoc-dha. Review of Systems Constitutional: Negative for activity [...] age. Normal hair distribution. No labial lesion. China Decorator present for the exam: JOYCE Palafox student [...] Normal Pelvic Exam: Vulva: Normal Vagina: Normal China Decorator present for the exam: JOYCE Palafox student [...] SCREEN, CONSULT MATERNAL MEDICINE ULTRASOUND Preferred Location: [facility] vit 74-dggn-ysbaw-dha (SELECT-OB + DHA) 29 mg iron-1 mg -250 mg combo pack, PAP Smear-Liquid Based, FLU VACC([id number]), 6+ MONTHS, IM, QUAD (FLUZONE/FLULAVAL/FLUARIX) Denies zika [...] Date Type Specialty Care Team Description 01/29/2020 Wire Machine Operator Visit [facility], [facility] 02/29/2020 Routine Visit [facility] Blaire Harris FNP [address] [place] [address] [phone] Name Type Priority Associated Diagnoses Date/Ti me [...] PAP Smear-Liquid Based LAB Routine Supervision of [facility] h risk Expected: 01/28/2020, , antepartum s: [...] FLU VACC Routine 01/28/2020 10:31 Supervision of [facility] ([id number]), 6+ AM CDT risk , MONTHS, IM, [...] [facility] ent [address] [place] [address] documented as of this encounter Advance Directives Name Relationship Healthcare Agent Relationship Co mmunication Ana Carreon Parent Primary healthcare agent
--- OUTSIDE RECORDS SUMMARY | 2020-03-12 10:29 | XMS REPORT | Summary of Care ---
:1998 Author Organization [facility] Address [address] [place] [address] Care Team Providers Name Role Phone Laura Watkins Primary Care Provider Autumn Bustillos Insurance Hmo Reason for Referral (Routine) Status Reason Specialty Diagnoses / Referred By Referred To Procedures Contact Contact New Request Maternal Diagnoses Supervision of high risk , antepartum Anderson Harris Medicine Procedures CONSULT MATERNAL MEDICINE ULTRASOUND Preferred Location: [facility] [address] [place] [address] Reason for Visit Reason Comments Initial Visit Encounter Details Date Type Department Care Team Description 01/28/2020 [facility] upervision of high risk , antepartum (Primary Dx); Visit [facility] Know[facility] History of pre-eclampsia in prior pregna ncy, currently in first trimester; [address] [place] [address]; [place], [place] Sickle cell trait; [address] [place], [place] Underweight; [phone] [address] Nausea and vomiting during lucien or to 22 weeks gestation [phone] Allergies No Known Allergiesdocumented as of this encounter (statuses as of 01/28/2020) Medications Medication Sig Dispensed Refills Start Date End Date Status vit Take 1 Packet 30 Each 6 01/28/2020 Ac tive 76-owvo-ptduf-dha by mouth (SELECT-OB + DHA) 29 daily. [...] This exam may be done by a fashion coordinator, family healthcare provider, nurse practitioner, nurse engineering design supervisor, or specially trained nurse. Yearly breast exams [...] Guidelines for having clinical breast exams The [place] College of Obstetricians and Gynecologists recommends that [...] provider about what is best for you. Yurpy last reviewed this educational content on 06/18/201719991681-6004 The Cloud[employer]. [address] [place] [address], [place] [address]. All rights reserved. This information is not [...] breast self-examination (BSE). These experts include the [place] Cancer Society and the [place] Congress of Obstetricians and Gynecologists. Some experts [...] benign. This means they are not cancer. Yurpy last reviewed this educational content on 06/18/201719998336-7952 The Puralytics, [employer]. [address] [place] [address], [place] [address]. All rights reserved. This information is not [...] youcan make now to protect your future. Yurpy last reviewed this educational content on 10/18/201619998317-0613 The Cloud[employer]. [address] [place] [address]. All rights reserved. This information is not [...] her child during , childbirth, and . Yurpy last reviewed this educational content on 04/18/201919993097-5447 The Cloud[employer]. [address] [place] [address]. All rights reserved. This information is not [...] carcinoma, endocervical adenocarcinoma in situ, or adenocarcinoma.) Yurpy last reviewed this educational content on 06/18/201719996873-3197 The Cloud[employer]. [address] [place] [address], [place] [address]. All rights reserved. This information is not intended as a substitute for professional medical care. Always follow your healthcare professional's instructions. Understanding USDA MyPlate The Specle (U.S. Department of Agriculture) has guidelines to [...] get this muchfrom the food you eat. Efficient Power ConversionNelson last reviewed this educational content on 06/18/201719990266-5218 Higher Learning Technologies. [address] [place] [address]. All rights reserved. This information is not intended as a substitute for professional medical care. Always follow your healthcare professional's instructions. documented in this encounter Progress Notes Anderson Harris, DISABILITY RATER - 01/28/2020 8:00 AM CDT Chief complaint: [...] file Gets together: Not on file Attends sabianism service: Not on file Active member of [...] list which includes the following prescription(s): vit 28-grxq-mzkbe-dha. Review of Systems Constitutional: Negative for activity [...] age. Normal hair distribution. No labial lesion. Networker present for the exam: JOYCE Palafox student [...] Normal Pelvic Exam: Vulva: Normal Vagina: Normal Networker present for the exam: JOYCE Palafox student [...] SCREEN, CONSULT MATERNAL MEDICINE ULTRASOUND Preferred Location: [facility] vit 46-yyte-wuspf-dha (SELECT-OB + DHA) 29 mg iron-1 mg -250 mg combo pack, PAP Smear-Liquid Based, FLU VACC([id number]), 6+ MONTHS, IM, QUAD (FLUZONE/FLULAVAL/FLUARIX) Denies zika [...] Date Type Specialty Care Team Description 01/29/2020 Car Rental Sales Assistant Visit [facility] Lab, [facility] 02/29/2020 Routine Visit [facility] Blaire Harris FNP [address] [place] [address] [address] [phone] Name Type Priority Associated Diagnoses Date/Ti me [...] PAP Smear-Liquid Based LAB Routine Supervision of [facility] h risk Expected: 01/28/2020, , antepartum [...] of [facility] ([id number]), 6+ AM CDT risk , MONTHS, IM, [...] OF xxxxxxxxx 2018-Pres P [address] BOX Medicaid [facility] [place] [id number] [place] [address] documented as of this encounter Advance Directives Name Relationship Healthcare Agent Relationship Co mmunication Ana Carreon Parent Primary healthcare agent
--- OUTSIDE RECORDS SUMMARY | 2020-03-12 10:30 | XMS REPORT | Summary of Care ---
:1998 Author Organization [facility] Address [address] [place] [address] Care Team Providers Name Role Phone Laura Watkins Primary Care Provider Autumn Bustillos Insurance Hmo Reason for Visit Reason Comments LAB Encounter Details Date Type Department Care Team Description 02/05/2020 Glost Tile Shader Visit [facility]zi Watkins, DENTAL PRACTITIONER [address] [place] [address] Supervision of [facility] Lab, [facility] risk in [address] [place] [address] Allergies No Known Allergiesdocumented as of this encounter (statuses as of 02/05/2020) Medications Medication Sig Dispensed Refills Start Date End Date Status vit Take 1 Packet by 30 Each 6 01/28/2020 Active 64-yayd-vuzam-dha mouth daily. (SELECT-OB + DHA) 29 mg iron-1 mg -250 mg combo packIndications: Supervision of high risk , antepartum documented as of this encounter (statuses as of 02/05/2020) Active Problems Problem Noted Date Multiparity 01/28/2020 [...] as of this encounter (statuses as of 02/05/2020) Resolved Problems Problem Noted Date Resolved Date [...] as of this encounter (statuses as of 02/05/2020) Immunizations Name Administration Dates Next Due Influenza [...] 02/29/2020 Routine Visit [facility] Blaire Harris, DENTAL PRACTITIONER [address] [place], [place] [address] [phone] Health Maintenance Due Date Last Done Comments [...] ( or series) ) PAP SMEAR 01/27/2023 01/28/2020, 01/28/2020 DTaP,Tdap,and Td Vaccines 03/18/2029 03/18/2019 (2 - Td) INFLUENZA VACCINE Completed 01/28/2020, 10/21/2018 MENINGOCOCCAL VACCINE Aged Out No longer eligible based on patient 's age to complete this topic PNEUMOCOCCAL 0-64 YEARS Aged Out No longe r eligible COMBINED SERIES based on patient 's age to complete this topic documented as of this encounter Results Not on filedocumented in this encounter Visit Diagnoses Diagnosis Supervision of high risk in rst trimester Unspecified high-risk documented in this encounter Insurance Payer Benefit Plan / Subscriber ID Effective Phone Address T ype Group Dates [employer] xxxxxxxxx 2018-Pres [address] Medicaid [place] [id number] [place] [address] documented as of this encounter Advance Directives Name Relationship Healthcare Agent Relationship Co mmunication Ana Guillen Primary healthcare agent
--- OUTSIDE RECORDS SUMMARY | 2020-03-12 10:30 | XMS REPORT | Summary of Care ---
:1998 Author Organization [facility] Address [address] [place] [address] Care Team Providers Name Role Phone Laura Watkins Primary Care Provider Autumn Bustillos Insurance Hmo Reason for Visit Reason Comments LAB Encounter Details Date Type Department Care Team Description 02/05/2020 Asset Administrator Visit [facility] Suzi Watkins, STATISTICAL ASSISTANT [address] [place] [address] Supervision of [facility] Lab, [facility] risk in [address] [place] [address] Allergies No Known Allergiesdocumented as of this encounter (statuses as of 02/05/2020) Medications Medication Sig Dispensed Refills Start Date End Date Status vit Take 1 Packet by 30 Each 6 01/28/2020 Active 78-zqnh-fthwa-dha mouth daily. (SELECT-OB + DHA) 29 mg [...] 02/29/2020 Routine Visit [facility] Blaire Harris, STATISTICAL ASSISTANT [address] [place], [place] [address] [phone] Name Type Priority Associated Diagnoses Date/Ti me CBC WITH DIFF LAB Routine Supervision of high risk 3:15 PM CDT in first trimester CBC WITH DIFFERENTIAL LAB Routine Supervision of high risk 02/05/2020 3:15 PM CDT in first trimester Health Maintenance Due Date Last Done Comments [...] Diagnoses Diagnosis Supervision of high risk in fi rst trimester Unspecified high-risk documented in this encounter Insurance Payer Benefit Plan / Subscriber ID Effective Phone Address T ype Group Dates [employer] xxxxxxxxx 2018-Pres [address] BOX Medicaid [facility] ent [id number] [place] [address] documented as of this encounter Advance Directives Name Relationship Healthcare Agent Relationship Co mmunication Ana Guillen Primary healthcare agent
--- OUTSIDE RECORDS SUMMARY | 2020-03-12 10:30 | XMS REPORT | Summary of Care ---
:2000 Author Organization [facility] Address [address] [place] [id number] Care Team Providers Name Role Phone Laura Watkins Primary Care Provider Autumn Bustillos Insurance Hmo Reason for Referral (Routine) Status Reason Specialty Diagnoses / Referred By Referred To Procedures Contact Contact Authorized Maternal Diagnoses Supervision of high risk , antepartum Anderson Harris Medicine Procedures CONSULT MATERNAL MEDICINE ULTRASOUND Preferred Location: [facility] Knowles [address] [place] [address] Reason for Visit Reason Comments ROUTINE VISIT Tele Health Visit Encounter Details Date Type Department Care Team Description 03/03/2020 Telemedicine Visit [facility]- Anderson Harris Supervision of high risk , antepartum (Primary Dx); LUCA Knowles Multiparity; [address] [facility] Mamie [address] [facility] Sickle cell trait; [place], [place] Mamie Nausea and vomiting during lucien or to 22 weeks gestation [id number] [place], [place] [phone] [address] Allergies No Known Allergiesdocumented as of this encounter (statuses as of 03/03/2020) Medications Medication Sig Dispensed Refills Start Date End Date Status vit Take 1 Packet by 30 Each 6 01/28/2020 Active 78-pysa-cijpg-dha mouth daily. (SELECT-OB + DHA) 29 mg iron-1 mg -250 mg combo packIndications: Supervision of high risk , antepartum documented as of this encounter (statuses as of 03/03/2020) Active Problems Problem Noted Date Multiparity 01/28/2020 [...] as of this encounter (statuses as of 03/03/2020) Resolved Problems Problem Noted Date Resolved Date [...] as of this encounter (statuses as of 03/03/2020) Immunizations Name Administration Dates Next Due Influenza [...] Signs Not on filedocumented in this encounter Progress Notes Anderson Harris FNP - 03/03/2020 12:45 PM CDT Chief complaint: Chief Complaint Patient presents with ROUTINE VISIT Tele Health Visit TELEHEALTH NOTE Verbal consent obtained from Patient: Hilda Celis and Care Provider: LUCA Gonzalez due to the COVID-19 pandemic for telehealth services provided below. Communication with patient was conducted via Telephone due to patient unable to obtain video call option. Location of Patient: Home Location of Provider: Clinic Date of Service: 03/03/2020 Chief Complaint: Routine Visit via Tele Health HPI: Hilda Celis is a 19 year old female with Past Medical History: Diagnosis Date Chlamydia infection affecting in third trimester 05/12/2019 Pre-eclampsia in third trimester 05/31/2019 Primigravida in second trimester 11/19/2018 STD (sexually transmitted disease) hx of chlamydia treated in 2015 Thrombocytopenia affecting 10/25/2018 ROS See Note TELEHEALTH EXAM Constitutional: Alert and no distress Respiratory: Breathing comfortably Neurology: Answers questions appropriately Psychological: Affect Normal After visit summary (AVS ) documentation will be available through evly for this encounter. A total of 15 minutes was spent on the Telephone due to patient unable to obtain video call option. LUCA Gonzalez HPI CC: Follow Up Visit Hilda Celis is a 19 year old, , Black or female. Patient's last menstrual period was 11/18/2019 (exact date). She is 15w1d with an intrauterine . Her estimated date of delivery is 08/24/2020, by Last Menstrual Period. She has no complaints today. She denies FM,contractions, LOF and bleeding today. Patient denies current or past physical, sexual or emotional abuse. Histories OB History Para Term AB Living [...] transmitted disease) hx of chlamydia treated in 2016 Thrombocytopenia affecting 10/25/2018 Family History Problem Relation [...] Specified) Fa (Not Specified) NoFHx (Not Specified) No past surgical history on file. Social History Socioeconomic History Marital status: Single [...] file Gets together: Not on file Attends mormon service: Not on file Active member of [...] control/protection: None Comment: last sexual intercourse 11/14/2019 Labs No new labs Radiology No new radiology. Allergies Darleccia has No Known Allergies. Medications Darleccia has a current medication list which includes the following prescription(s): vit 41-rzhu-zlwfx-dha. Review of Systems Eyes: Negative for visual disturbance. Cardiovascular: Negative for leg swelling. Gastrointestinal: Negative for abdominal pain, nausea and vomiting. Genitourinary: Negative for vaginal bleeding, vaginal discharge and pelvic pain. Neurological: Negative for headaches. LMP 11/18/2019 (Exact Date) Pregravid BMI: Could not be calculated Physical Exam PHYSICAL: General Exam: Neurological: Normal Assessment/Plan Supervision of high risk , antepartum (primary encounter diagnosis) Multiparity Comment: Routine Visit Plan: CBC WITH DIFF, CONSULT MATERNAL MEDICINE ULTRASOUND Preferred Location: [place] Denies zika virus risk, signs and symptoms such as fever,rash,joint pain, conjunctivitis (red eyes), muscle pain, headaches; outside [place] travel to areas affected by zika, and FOB exposure to zika. Educated on use of mosquito repellent. Sickle cell trait Comment:Sickle Cell Trait (needs U/C every visit), Son has Sickle cell diease Plan: URINE CULTURE Nausea and vomiting during prior to 22 weeks gestation Comment: improving Plan: will continue to monitor Return to clinic in 4 weeks in person. Discussed treatment options. Medications as ordered. Reviewed patient instructions and provided printed copy. This visit did not involve counseling and coordination that comprised more than 50% of the visit time. LUCA Gonzalez 03/03/2020 11:51 AM documented in this encounter Plan of Treatment Date Type Specialty Care Team Description 03/28/2020 Routine Visit OB Satellites Anderson Harris FNP [address] [place], [place] [address] [phone] 04/06/2020 Territory Sales Consultant Visit Maternal Medicine Name Type Priority Associated Diagnoses Order S chedule CBC WITH DIFF LAB Routine Supervision of high risk Ex pected: 03/03/2020, , antepartum s: 03/03/2021 URINE CULTURE LAB Routine Sickle cell trait Expected: 03/03/2020, Expires: 2020 Health Maintenance Due Date Last Done Comments [...] of high risk , ante - Primary Multiparity Sickle cell trait Sickle-cell trait Nausea and vomiting during lucien or to 22 weeks gestation documented in this encounter Insurance Payer Benefit Plan / Subscriber ID Effective Phone Address T ype Group Dates [employer] 2018-Pres [address] Medicaid [facility] ent [id number] [place] [address] documented as of this encounter Advance Directives Name Relationship Healthcare Agent Relationship Co mmunication Ana Carreon Parent Primary healthcare agent
--- OUTSIDE RECORDS SUMMARY | 2020-03-12 10:30 | XMS REPORT | Summary of Care ---
:2000 Author Organization [facility] Address [address] [place] [address] Care Team Providers Name Role Phone Laura Watkins Primary Care Provider Autumn Bustillos Insurance Hmo Reason for Visit Reason Comments LAB Encounter Details Date Type Department Care Team Description 02/05/2020 Foil Spooler Visit [facility]- Suzi Watkins, QUALITY CONTROL TECH [employer] [address] [place] [address] Supervision of [facility], [facility] risk in [address] [place] [address] Allergies No Known Allergiesdocumented as of this encounter (statuses as of 02/05/2020) Medications Medication Sig Dispensed Refills Start Date End Date Status vit Take 1 Packet by 30 Each 6 01/28/2020 Active 57-vmcf-uhihu-dha mouth daily. (SELECT-OB + DHA) 29 mg [...] 02/29/2020 Routine Visit OB Satellites Blaire Harris, QUALITY CONTROL TECH [employer] [address] [place], [place] [address] [phone] Name Type Priority Associated Diagnoses Order S chedule CBC WITH DIFF LAB Routine Supervision of high risk Or dered: 02/05/2020 in first trimester CBC WITH DIFFERENTIAL LAB Routine Supervision of high risk Ordered: 02/05/2020 in first trimester Health Maintenance Due Date [...] OF xxxxxxxxx 2018-Pres [address] Medicaid [facility] ent [id number] [place] [address] documented as of this encounter Advance Directives Name Relationship Healthcare Agent Relationship Co mmunication Ana Guillen Primary healthcare agent
[2020-03-12 10:51] LABS: Urine Blood TRACE (NEG); Urine Glucose NEGATIVE (NEG); Urine Protein 2+ (NEG); Urine Specific Gravity 1.025 (1.005-1.030)
[2020-03-12] MEDS ORDERED: NA CHLORIDE 0.9% 500 ML ONE (10:56)
[2020-03-12] MEDS ORDERED: ACETAMINOPHEN 325 MG TABLET ONE (10:56)
[2020-03-12 11:14] LABS: Absolute Lymphocytes (CBC) 1.5 K/uL (0.7-4.9); Basophils % 0.4 % (0-1.3); Hematocrit 36.8 % (36.0-45.0); Lymphocytes % 26.7 % (15.3-44.8); MPV 9.5 fL (7.6-11.3); RBC Red Blood Cell Count 4.04 M/uL (3.86-4.86)
[2020-03-12 11:28] LABS: BUN Blood Urea Nitrogen 6 mg/dL (7-18); Bicarbonate 24 mmol/L (21-32); Glucose Level 73 mg/dL (74-106); Potassium 3.6 mmol/L (3.5-5.1); Sodium Level 139 mmol/L (136-145)
--- NOTE | 2020-03-12 12:16 | ER ---
Nurse's Notes [facility] Name: Hilda Celis Age: 19 yrs Sex: Female : 2000 Arrival Date: 03/12/2020 Time: 10:30 Bed 20 Private MD: None, None Diagnosis: Urinary tract infection, site not specified Presentation: 03/12 10:36 Chief complaint: Headache, lower abdominal cramping, and N/V x 2 weeks. Tolerating hb fluids. Pt reports she is 4 weeks , REYNA 08/24/20. Coronavirus screen: Proceed with normal triage. Ebola Screen: No symptoms or risks identified at this time. Initial Sepsis Screen: Does the patient meet any 2 criteria? No. Patient's initial sepsis screen is negative. Does the patient have a suspected source of infection? No. Patient's initial sepsis screen is negative. Risk Assessment: Do you want to hurt yourself or someone else? Patient reports no desire to harm self or others. Onset of symptoms was March 12, 2020. 10:36 Method Of Arrival: Ambulatory hb 10:36 Acuity: JUAN 3 hb Historical: - Allergies: 10:38 No Known Allergies; hb - Home Meds: 10:38 Vitamin Oral tab 1 tab once daily [Active]; hb - PMHx: 10:38 None; hb - PSHx: 10:38 None; hb - Immunization history:: Adult Immunizations up to date. - Social history:: Smoking status: Patient denies any tobacco usage or history of. Screenin:00 Abuse screen: Denies threats or abuse. Nutritional screening: No deficits noted. Tuberculosis screening: No symptoms or risk factors identified. Fall Risk None identified. Vital Signs: 10:36 BP 112 / 68; Pulse 68; Resp 16; Temp 97.2; Pulse Ox 100% ; Weight 53.52 kg; Height 5 hb ft. 4 in. (162.56 cm); Pain 0/10; 11:59 BP 112 / 77; Pulse 79; Resp 18; Temp 97.5(TE); Pulse Ox 100% on R/A; mh5 10:36 Body Mass Index 20.25 (53.52 kg, 162.56 cm) hb ED Course: 10:30 Patient arrived in ED. mr 10:30 None, None is Private Physician. mr 10:31 AttemaTera FNP-C is [facility]. la1 10:31 Rene Barnett MD is Attending Physician. la1 10:32 Lucita Mendez, RN is Primary Nurse. 10:37 Triage completed. hb 10:38 Arm band placed on. hb 10:46 Patient has correct armband on for positive identification. Placed in gown. Bed in low mh5 position. Call light in reach. Warm blanket given. Pulse ox on. NIBP on. 10:46 Urine collected: clean catch specimen, clear. [facility] 11:00 CBC with Diff Sent. [facility] 11:00 BMP Sent. [facility] 11:55 Initial lab(s) drawn, by co, sent to lab. Inserted saline lock: 22 gauge in right 5 antecubital area, using aseptic technique. Blood collected. 12:00 Urine Culture Sent. [facility] 12:00 Urine Microscopic Only Sent. [facility] 12:00 IV discontinued, intact, bleeding controlled, No redness/swelling at site. Pressure dressing applied. 12:14 Removal of peripheral IV. Catheter intact, dressing applied. 3 12:23 heart tones: Mothers HR= 76 BPM; Baby HR= 130s BPM. jp3 Administered Medications: 10:55 Drug: Tylenol 650 mg Route: PO; 11:55 Follow up: Response: No adverse reaction 12:08 Not Given (Patient Refused; KONRAD Haley notified): NS 0.9% 500 ml IV at bolus once Outcome: 12:15 Discharge ordered by . la1 12:31 Discharged to 12:38 Patient left the ED. Signatures: Crescencio Ligia gentile Billyhakeem NAMRATA Haley-Cla1 Kalpana Haque RN RN Claribel Anaya [facility] Akhil Heredia 3 Lucita Mendez, RN RN Corrections: (The following items were deleted from the chart) 18:10 18:08 No provider procedures requiring assistance completed. [facility]
--- NOTE | 2020-03-12 12:16 | EDPHYS ---
Physician Documentation [facility] Name: Hilda Celis Age: 19 yrs Sex: Female : 2000 Arrival Date: 03/12/2020 Time: 10:30 Bed 20 Private MD: None, None ED Physician Rene Barnett HPI: 03/12 10:45 This 19 yrs old Black Female presents to ER via Ambulatory with complaints of 16 wks la1 , Vomiting, Headache, Abdominal Pain. 10:45 The patient complains of pain to the forehead. The patient describes the headache as la1 intermittent, a pressure. Onset: The symptoms/episode began/occurred at an unknown time. and became worse today. Associated signs and symptoms: Pertinent negatives: altered mental status, dizziness, fever, malaise, neck stiffness, Photophobia rash, sinus congestion, sinus tenderness, vision changes, vision loss, vomiting, weakness, vertigo. Severity of symptoms: At its worst the pain was moderate. Headache History: The patient has had previous headaches and this one is similar to previous episodes. The patient has experienced similar episodes in the past. pt reports she is 4 months and has had intermittent headaches and nausea. Pt also reports some abd cramping that is currently denies without vaginal bleeding. Pt has had dating US performed this which was reported to have confirmed IUP.. Historical: - Allergies: 10:38 No Known Allergies; hb - Home Meds: 10:38 Vitamin Oral tab 1 tab once daily [Active]; hb - PMHx: 10:38 None; hb - PSHx: 10:38 None; hb - Immunization history:: Adult Immunizations up to date. - Social history:: Smoking status: Patient denies any tobacco usage or history of. ROS: 10:47 Constitutional: Negative for fever, chills, and weight loss, ENT: Negative for injury, la1 pain, and discharge, Neck: Negative for injury, pain, and swelling, Cardiovascular: Negative for chest pain, palpitations, and edema, Respiratory: Negative for shortness of breath, cough, wheezing, and pleuritic chest pain. 10:47 Cardiovascular: Negative for chest pain, edema. 10:47 Respiratory: Negative for cough, shortness of breath. 10:47 Abdomen/GI: Positive for nausea, Negative for abdominal pain, black/tarry stool, rectal bleeding, acute changes. 10:47 : Negative for urinary symptoms. 10:47 Neuro: Positive for headache, Negative for altered mental status, dizziness, gait disturbance, seizure activity, speech changes, syncope, near syncope, tingling, visual changes, weakness, acute changes. Exam: 10:49 Constitutional: This is a well developed, well nourished patient who is awake, alert, la1 and in no acute distress. Head/Face: Normocephalic, atraumatic. Eyes: Pupils equal round and reactive to light, extra-ocular motions intact. Chest/axilla: Normal chest wall motion. Cardiovascular: Regular rate and rhythm with a normal S1 and S2. Respiratory: Lungs have equal breath sounds bilaterally, clear to auscultation 10:49 Skin: Warm, dry with normal turgor. Normal color with no rashes, no lesions, and no evidence of cellulitis. Neuro: Awake and alert, GCS 15, oriented to person, place, time, and situation. Cranial nerves II-XII grossly intact. Motor strength 5/5 in all extremities. Sensory grossly intact. Cerebellar exam normal. Normal gait. 10:49 Abdomen/GI: Inspection: gravid appearance, is noted, Bowel sounds: normal, Palpation: nontender, in all quadrants. Vital Signs: 10:36 BP 112 / 68; Pulse 68; Resp 16; Temp 97.2; Pulse Ox 100% ; Weight 53.52 kg; Height 5 hb ft. 4 in. (162.56 cm); Pain 0/10; 11:59 BP 112 / 77; Pulse 79; Resp 18; Temp 97.5(TE); Pulse Ox 100% on R/A; mh5 10:36 Body Mass Index 20.25 (53.52 kg, 162.56 cm) hb MDM: 10:34 Patient medically screened. saray 12:11 Data reviewed: vital signs, nurses notes, lab test result(s), I have discussed the la1 patient's presentation/case with the attending Emergency Department Physician; and as a result, I will discharge patient. Data interpreted: Pulse oximetry: on room air is 100 %. Interpretation: normal. Counseling: I had a detailed discussion with the patient and/or guardian regarding: the historical points, exam findings, and any diagnostic results supporting the discharge/admit diagnosis, lab results, the need for outpatient follow up, an OB/Gyne specialist, to return to the emergency department if symptoms worsen or persist or if there are any questions or concerns that arise at home. Special discussion: Based on the patient's Hx, exam, and Dx evaluation, there is no indication for emergent surgery or inpatient Tx. It is understood by the patient/guardian that if the Sx's persist or worsen they need to return immediately for re-evaluation. ED course: pt with asymptomatic bacteruria, will treat as she is , urine culture obtained, pt denies abd pain or vaginal bleeding at this time. 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 03/12 10:44 Order name: CBC with Diff; Complete Time: 11:40 [facility] 03/12 10:44 Order name: BMP; Complete Time: 11:40 [facility] 03/12 10:49 Order name: Urine Dipstick--Ancillary (enter results) 03/12 10:49 Order name: Urine --Ancillary (enter results) 03/12 11:03 Order name: Urine Microscopic Only [facility] 03/12 11:03 Order name: Urine Culture 03/12 10:44 Order name: IV; Complete Time: 11:00 03/12 10:44 Order name: Urine Dipstick-Ancillary (obtain specimen); Complete Time: 10:45 wa03/12 10:44 Order name: Urine Test (obtain specimen); Complete Time: 10:45 [facility] 03/12 12:14 Order name: FHT's; Complete Time: 12:25 la1 Administered Medications: 10:55 Drug: Tylenol 650 mg Route: PO; 11:55 Follow up: Response: No adverse reaction 12:08 Not Given (Patient Refused; KONRAD Haley notified): NS 0.9% 500 ml IV at bolus once Disposition: 03/12/20 12:15 Discharged to Home. Impression: Urinary tract infection, site not specified. - Condition is Stable. - Discharge Instructions: Urinary Tract Infection, Adult, and Urinary Tract Infection. - Prescriptions for Macrobid 100 mg Oral Capsule - take 1 capsule by ORAL route every 12 hours for 5 days; 10 capsule. - Medication Reconciliation Form, Thank You Letter, Antibiotic Education form. - Follow up: Private Physician; When: 2 - 3 days; Reason: Recheck today's complaints, Re-evaluation by your physician. Follow up: Emergency Department; When: As needed; Reason: Worsening of condition. - Problem is new. - Symptoms have improved. Addendum: 03/14/2020 09:55 Co-signature as Attending Physician, Rene Barnett MD I agree with the assessment and c post plan of care. Signatures: Dispatcher [employer] [facility] Rene Barnett MD MD cha Attema, Lee, LIFE SCIENCES DIRECTOR-C LIFE SCIENCES DIRECTOR-Cla1 Kalpana Haque, RN RN Lucita Mendez RN RN Corrections: (The following items were deleted from the chart) 03/12 12:38 12:15 03/12/2020 12:15 Discharged to Home. Impression: Urinary tract infection, site ah not specified. Condition is Stable. Forms are Medication Reconciliation Form, Thank You Letter, Antibiotic Education, Prescription Opioid Use. Follow up: Private Physician; When: 2 - 3 days; Reason: Recheck today's complaints, Re-evaluation by your physician. Follow up: Emergency Department; When: As needed; Reason: Worsening of condition. Problem is new. Symptoms have improved. la1
[2020-03-12 12:43] VITALS: O2SAT 100
[2020-03-12 12:44] VITALS: BP 112/77; TEMP 97.5
[2020-03-12 12:49] LABS: Urine Bacteria <20 /HPF (<20); Urine RBC <5 /HPF (NONE SEEN)
[2020-03-12 12:50] LABS: Urine Culture Reflex Order NOT NEEDED
== END 2020-03-12 12:38 | disposition home or self-care (01) ==
LOC: ER 10:25
DX: O23.42 Unspecified infection of urinary tract in pregnancy, second trimester (principal); Z3A.16 16 weeks gestation of pregnancy
CPT/HCPCS: 87088; 85025; 80048; 36415; 81025; 99284; J7040; 81003; 81015; 87086

== ENCOUNTER 2021-08-22 10:21 | Emergency (ER) | payer OTHER ==
[2021-08-22 11:17] LABS: Urine Blood Negative (Negative); Urine Glucose Negative (Negative); Urine Protein Negative (Negative); Urine Specific Gravity 1.025 (1.005-1.030)
[2021-08-22 11:31] LABS: Absolute Lymphocytes (CBC) 1.6 K/uL (0.7-4.9); Basophils % 0.5 % (0-1.3); Hematocrit 37.6 % (36.0-45.0); MPV 8.6 fL (7.6-11.3)
[2021-08-22 11:55] LABS: Urine Specific Gravity/Preg 1.025 (1.005-1.030)
--- NOTE | 2021-08-22 11:55 | RAD REPORT ---
EXAM DESCRIPTION: US - Transvaginal OB - 08/22/2021 11:37 am CLINICAL HISTORY: ABD CRAMPING, COMPARISON: Transvaginal OB dated 10/26/2018 FINDINGS: The uterus measures 9.8 cm in long axis. The gestational sac with pole is identified . The crown-rump length measures 10 millimeters which is consistent with 7 weeks 1 day. Small subchor ionic hemorrhage is noted. No heart tones are present. The right ovary has a volume of 6.7 cc. The left ovary was not visualized. IMPRESSION: Sonographic findings diagnostic of failed first trimester . No heart tone s identified in a fetus with crown-rump length of 10 mm.
[2021-08-22 12:06] LABS: BUN Blood Urea Nitrogen 7 mg/dL (7-18); Bicarbonate 24 mmol/L (21-32); Glucose Level 88 mg/dL (74-106); HCG, Quantitative 12710 mIU/mL (1-3); Potassium 3.9 mmol/L (3.5-5.1); Sodium Level 140 mmol/L (136-145)
--- NOTE | 2021-08-22 13:37 | ER ---
Nurse's Notes [facility] Name: Hilda Celis Age: 21 yrs Sex: Female : 2000 Arrival Date: 08/22/2021 Time: 10:23 Bed 16 Private MD: Diagnosis: Missed Presentation: 08/22 10:24 Chief complaint: Patient states: diffuse abd pain/cramping, n/v started last night. Pt sv is currently . Coronavirus screen: Vaccine status: Patient reports receiving the 2nd dose of the covid vaccine. Patient reports receiving the 1st dose of the Covid vaccine. Client denies travel out of the [place] in the last 14 days. Ebola Screen: No symptoms or risks identified at this time. Risk Assessment: Do you want to hurt yourself or someone else? Patient reports no desire to harm self or others. Onset of symptoms was August 21, 2021. 10:24 Method Of Arrival: Ambulatory sv 10:24 Acuity: JUAN 3 sv 10:25 Initial Sepsis Screen: Does the patient meet any 2 criteria? No. Patient's initial sv sepsis screen is negative. Does the patient have a suspected source of infection? No. Patient's initial sepsis screen is negative. Triage Assessment: 10:27 General: Appears in no apparent distress. Behavior is calm, cooperative. Neuro: Level sv of Consciousness is awake, alert, Gait is steady. Respiratory: Respiratory effort is even, unlabored. FULLER BRUSH MAN: 10:25 LMP 06/10/2021 sv 17:20 3, 0, Living 2, LMP 05/2021 kb Historical: - Allergies: 10:25 No Known Allergies; sv - PMHx: 10:25 None; sv - PSHx: 10:25 None; sv - Immunization history:: Adult Immunizations up to date. - Social history:: Smoking status: Patient denies any tobacco usage or history of. Screenin:45 Abuse screen: Denies threats or abuse. Denies injuries from another. Nutritional tw5 screening: No deficits noted. Tuberculosis screening: No symptoms or risk factors identified. Fall Risk None identified. Assessment: 10:45 General: Reports " I dont know if I am 7 or 9 weeks , but I started having tw5 cramping last night." Patient denies any bleeding or spotting at this time. Pain: Complains of pain in suprapubic area Pain currently is 3 out of 10 on a pain scale. Quality of pain is described as crampy. GI: Bowel sounds present X 4 quads. Abdomen is tender to palpation in right lower quadrant and left lower quadrant. 12:34 Reassessment: Patient states feeling better. General: Appears in no apparent distress. tw5 Pain: Pain currently is 7 out of 10 on a pain scale. 13:12 General: Appears in no apparent distress. Behavior is cooperative. tw5 14:01 General: Appears in no apparent distress. tr6 Vital Signs: 10:25 BP 112 / 80; Pulse 71; Resp 16; Temp 97.2; Pulse Ox 100% ; Weight 40.37 kg; Height 5 sv ft. 1 in. (154.94 cm); Pain 7/10; 12:06 BP 110 / 69; Pulse 69; Resp 13; Pulse Ox 100% on R/A; tw5 14:01 BP 113 / 75; Pulse 75; Resp 20; Temp 98.7; Pulse Ox 99% ; Pain 5/10; tr6 10:25 Body Mass Index 16.82 (40.37 kg, 154.94 cm) sv ED Course: 10:23 Patient arrived in ED. ds1 10:24 Arm band placed on. sv 10:25 Triage completed. sv 10:29 Christine Dykes FNP-C [facility]. kb 10:29 Jake Alexandre MD is Attending Physician. kb 10:45 Sara Preston is Primary Nurse. tw5 10:45 No apparent distress. tw5 10:45 Patient has correct armband on for positive identification. Bed in low position. Call tw5 light in reach. Pulse ox on. NIBP on. Door closed. Noise minimized. Lights dimmed. Moved to private room. Verbal reassurance given. 10:45 No provider procedures requiring assistance completed. tw5 11:15 Initial lab(s) drawn, by me, sent to lab. Inserted saline lock: 20 gauge in left kj1 antecubital area, using aseptic technique. Blood collected. 11:37 US Transvaginal Ob In Process Unspecified. EDMS 13:12 Assist provider with pelvic exam: Set up pelvic tray. tw5 13:27 Awaiting re-evaluation by ER provider. tw5 13:27 Assist provider with pelvic exam: Performed by Christine OTT Patient tolerated tw5 well. 14:01 IV discontinued, intact, bleeding controlled, No redness/swelling at site. tr6 Administered Medications: No medications were administered Outcome: 13:36 Discharge ordered by . frederic 14:01 Discharged to home ambulatory, with family. tr6 14:01 Condition: good 14:01 Discharge instructions given to patient, Instructed on discharge instructions, follow up and referral plans. Demonstrated understanding of instructions. 14:02 Patient left the ED. tr6 Signatures: Dispatcher [employer] EDLA Christine Dykes FNP-C FNP-Claudia Velez RN RN Karin Fernandez dsLakisha Iraheta Tiffany, RN RN tr6 Sara Preston tw5 Corrections: (The following items were deleted from the chart) 10:26 10:24 Chief complaint: Patient states: diffuse abd pain/cramping, n/v started last sv night. sv 10:27 10:25 40.37 kg; Height 5 ft. 1 in.; BMI: 16.8; sv sv 10:28 10:25 Temp 97.2F; 40.37 kg; Height 5 ft. 1 in.; BMI: 16.8; sv sv
--- NOTE | 2021-08-22 13:37 | EDPHYS ---
Physician Documentation [facility] Name: Hilda Celis Age: 21 yrs Sex: Female : 2000 Arrival Date: 08/22/2021 Time: 10:23 Bed 16 Private MD: ED Physician Jake Alexandre HPI: 08/22 17:20 This 21 yrs old Black Female presents to ER via Ambulatory with complaints of Abdominal kb Pain. 17:20 The patient has been recently seen by a physician:. kb 17:20 The patient presents to the emergency department with abdominal pain. The estimated kb gestational age is 10 weeks. course: care: at a clinic, Leakage of Fluid: none appreciated, Ultrasound: the patient had an ultrasound. Previous pregnancies: in previous pregnancies patient has had. Associated signs and symptoms: Pertinent positives: abdominal pain, Pertinent negatives: vaginal bleeding, vaginal discharge. The patient has not experienced similar symptoms in the past. Pt reports she has had lower abd cramping for a week, pain got worse last night. Denies vaginal bleeding. States her last period was sometime in May. [facility] went to [facility] on 08/14[facility]21 for US and was told the fetus wasn't measuring correctly and there was no heartbeat. She followed up with her OB at [facility] after that and was scheduled for another US on 09/04/21. . 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 - Social history:: Smoking status: Patient denies any tobacco usage or history of. ROS: 17:19 Constitutional: Negative for fever, chills, and weight loss. kb 17:19 Abdomen/GI: Positive for abdominal pain. 17:19 All other systems are negative. Exam: 17:19 Constitutional: This is a well developed, well nourished patient who is awake, alert, kb and in no acute distress. Head/Face: Normocephalic, atraumatic. Cardiovascular: Regular rate and rhythm with a normal S1 and S2. No gallops, murmurs, or rubs. No pulse deficits. Respiratory: Respirations even and unlabored. No increased work of breathing, no retractions or nasal flaring. Skin: Warm, dry with normal turgor. Normal color. MS/ Extremity: Pulses equal, no cyanosis. Neurovascular intact. Full, normal range of motion. Neuro: Awake and alert, GCS 15, oriented to person, place, time, and situation. Moves all extremities. Normal gait. Psych: Awake, alert, with orientation to person, place and time. Behavior, mood, and affect are within normal limits. 17:19 Abdomen/GI: Inspection: abdomen appears normal, Bowel sounds: normal, in all quadrants, Palpation: soft, in all quadrants, mild abdominal tenderness, in the suprapubic area. Vital Signs: 10:25 BP 112 / 80; Pulse 71; Resp 16; Temp 97.2; Pulse Ox 100% ; Weight 40.37 kg; Height 5 sv ft. 1 in. (154.94 cm); Pain 7/10; 12:06 BP 110 / 69; Pulse 69; Resp 13; Pulse Ox 100% on R/A; tw5 14:01 BP 113 / 75; Pulse 75; Resp 20; Temp 98.7; Pulse Ox 99% ; Pain 5/10; tr6 10:25 Body Mass Index 16.82 (40.37 kg, 154.94 cm) sv MDM: 10:29 Patient medically screened. kb 13:30 Data reviewed: vital signs, nurses notes. Data interpreted: Pulse oximetry: on room air kb is 100 %. Interpretation: normal. Counseling: I had a detailed discussion with the patient and/or guardian regarding: the historical points, exam findings, and any diagnostic results supporting the discharge/admit diagnosis, lab results, radiology results, the need for outpatient follow up, an OB/Gyne specialist, to return to the emergency department if symptoms worsen or persist or if there are any questions or concerns that arise at home. Physician consultation: Allan Shen MD was contacted at 13:30, regarding consult, patient's condition, recommends outpatient follow up with OB. 08/22 10:46 Order name: Abo/rh Typing; Complete Time: 11:45 kb 08/22 10:46 Order name: Basic Metabolic Panel; Complete Time: 12:21 kb 08/22 10:46 Order name: CBC with Diff; Complete Time: 11:39 kb 08/22 10:46 Order name: Quantitative Hcg; Complete Time: 12:21 kb 08/22 11:17 Order name: Urine Dipstick-Ancillary; Complete Time: 11:28 EDMS 08/22 11:23 Order name: Urine --Ancillary (enter results); Complete Time: 12:21 bd 08/22 10:46 Order name: IV Saline Lock; Complete Time: 12:35 kb 08/22 10:46 Order name: Labs collected and sent; Complete Time: 12:35 kb 08/22 10:46 Order name: NPO; Complete Time: 10:58 kb 08/22 10:46 Order name: Urine Dipstick-Ancillary (obtain specimen); Complete Time: 12:35 kb 08/22 10:46 Order name: Urine Test (obtain specimen); Complete Time: 12:35 kb 08/22 10:46 Order name: US Transvaginal Ob; Complete Time: 12:21 kb Administered Medications: No medications were administered Disposition Summary: 08/22/21 13:36 Discharge Ordered Location: Home kb Condition: Stable kb Diagnosis - Missed kb Followup: kb - With: Emergency Department - When: As needed - Reason: Worsening of condition Followup: kb - With: Private Physician - When: 2 - 3 days - Reason: Recheck today's complaints, Continuance of care, Re-evaluation by your physician Discharge Instructions: - Discharge Summary Sheet kb - Miscarriage, [id number] kb Forms: - Medication Reconciliation Form kb - Thank You Letter kb - Antibiotic Education kb - Prescription Opioid Use kb Addendum: 08/25/2021 08:33 Co-signature as Attending Physician, Jake Alexandre MD. r n 08:33 I agree with the assessment and plan of care. Attestation: The patient's history, exam r n findings, diagnostics, and a summary of any interventions or procedures was reviewed in detail with Christine OTT. Signatures: Dispatcher [employer] Christine Baig FNP-C FNP-Claudia Velez, RN RN Jake Alcala MD MD rn
[2021-08-22 14:16] VITALS: BP 113/75; TEMP 98.7; O2SAT 99
== END 2021-08-22 14:02 | disposition home or self-care (01) ==
LOC: ER 10:21
DX: O02.1 Missed abortion (principal)
CPT/HCPCS: 36415; 76817; 80048; 81003; 81025; 84702; 85025; 86900; 86901; 99284

== ENCOUNTER 2023-10-19 12:15 | Emergency (ER) | payer SELFPAY ==
--- NOTE | 2023-10-19 13:52 | ER ---
Nurse's Notes [facility] Name: Hilda Celis Age: 23 yrs Sex: Female : 2000 Arrival Date: 10/19/2023 Time: 12:15 Bed 10 Private MD: Diagnosis: Acute pharyngitis, unspecified Presentation: 10/19 12:33 Chief complaint: Patient states: sore throat and productive cough onset . Pt cm10 denies any fever. No sick contacts. Coronavirus screen: Vaccine status: Patient reports receiving the 2nd dose of the covid vaccine. Client denies travel out of the [place] in the last 14 days. Ebola Screen: Patient denies travel to an Ebola-affected area in the 21 days before illness onset. No symptoms or risks identified at this time. Initial Sepsis Screen: Does the patient meet any 2 criteria? No. Patient's initial sepsis screen is negative. Does the patient have a suspected source of infection? No. Patient's initial sepsis screen is negative. Risk Assessment: Do you want to hurt yourself or someone else? Patient reports no desire to harm self or others. Onset of symptoms was October 19, 2023. 12:33 Method Of Arrival: Ambulatory cm10 12:33 Acuity: JUAN 4 cm10 Triage Assessment: 12:35 General: Appears in no apparent distress. comfortable, Behavior is calm, cooperative. cm10 Pain: Denies pain. EENT: Throat is pink. Cardiovascular: No deficits noted. Respiratory: No deficits noted. Reports cough that is productive, Airway is patent Respiratory effort is even, unlabored, Respiratory pattern is regular, symmetrical. Derm: No deficits noted. Skin is intact, Skin is pink, warm \T\ dry. Musculoskeletal: No deficits noted. Range of motion: intact in all extremities. 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 - Social history:: Smoking status: Patient denies any tobacco usage or history of. Screenin:11 [facility] ED Fall Risk Assessment (Adult) History of falling in the last 3 months, cm10 including since admission No falls in past 3 months (0 pts) Confusion or Disorientation No (0 pts) Intoxicated or Sedated No (0 pts) Impaired Gait No (0 pts) Mobility Assist Device Used No (0 pt) Altered Elimination No (0 pt) Score/Fall Risk Level 0 - 2 = Low Risk Oriented to surroundings, Maintained a safe environment, Hourly rounding (assess needs \T\ fall precautionary measures) done. Abuse screen: Denies threats or abuse. Denies injuries from another. Nutritional screening: No deficits noted. Tuberculosis screening: No symptoms or risk factors identified. Vital Signs: 12:33 BP 118 / 86; Pulse 75; Resp 18; Temp 97.8; Pulse Ox 100% ; Weight 44.45 kg; Height 5 cm10 ft. 1 in. ; Pain 0/10; 12:33 Body Mass Index 18.52 (44.45 kg, 154.94 cm) cm10 12:33 Pain Scale: Adult cm10 ED Course: 12:18 Patient arrived in ED. 4 12:21 Franci Crisostomo FNP is [facility] 12:21 Rene Barnett MD is Attending Physician. [facility] 12:34 Triage completed. cm10 12:36 Arm band placed on Patient placed in an exam room, on a stretcher. cm10 13:07 Laura Anaya RN is Primary Nurse. cm10 13:10 Strep Sent. cm10 13:11 Patient has correct armband on for positive identification. Bed in low position. Call cm10 light in reach. Provided Education on: ER process and procedures. . 13:11 No provider procedures requiring assistance completed. Patient did not have IV access cm10 during this emergency room visit. Administered Medications: No medications were administered Medication: 13:11 VIS not applicable for this client. cm10 Outcome: 13:52 Discharge ordered by . [facility] 14:02 Discharged to home ambulatory, cm10 14:02 Condition: good 14:02 Discharge instructions given to patient, Instructed on discharge instructions, follow up and referral plans. Demonstrated understanding of instructions, follow-up care, 14:02 Patient left the ED. cm10 Signatures: Alecia Rachel rg4 Franci Crisostomo FNP GED INSTRUCTOR [facility] Laura Anaya RN RN cm10
--- NOTE | 2023-10-19 13:52 | EDPHYS ---
Physician Documentation [facility] Name: Hilda Celis Age: 23 yrs Sex: Female : 2000 Arrival Date: 10/19/2023 Time: 12:15 Bed 10 Private MD: ED Physician Rene Barnett HPI: 10/19 12:35 This 23 yrs old Black Female presents to ER via Ambulatory with complaints of Flu jh7 Symptoms. 12:35 Onset: The symptoms/episode began/occurred 2 day(s) ago. Associated signs and symptoms: jh7 Pertinent positives: cough, sore throat, Pertinent negatives: abdominal pain, chest pain. Patient only requesting strep test and a work note. History of HIV.. 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 - Social history:: Smoking status: Patient denies any tobacco usage or history of. ROS: 12:35 Constitutional: Negative for fever, chills, and weight loss, Eyes: Negative for injury, jh7 pain, redness, and discharge, Neck: Negative for injury, pain, and swelling, Cardiovascular: Negative for chest pain, palpitations, and edema, Abdomen/GI: Negative for abdominal pain, nausea, vomiting, diarrhea, and constipation, Skin: Negative for injury, rash, and discoloration, Neuro: Negative for headache, weakness, numbness, tingling, and seizure, 12:35 ENT: Positive for sore throat, 12:35 Respiratory: Positive for cough, Negative for shortness of breath, 12:35 All other systems are negative, Exam: 12:35 Constitutional: This is a well developed, well nourished patient who is awake, alert, jh7 and in no acute distress. Head/Face: Normocephalic, atraumatic. Eyes: Pupils equal round and reactive to light, extra-ocular motions intact. Lids and lashes normal. Conjunctiva and sclera are non-icteric and not injected. Cornea within normal limits. Periorbital areas with no swelling, redness, or edema. Neck: Trachea midline, no thyromegaly or masses palpated, and no cervical lymphadenopathy. Supple, full range of motion without nuchal rigidity, or vertebral point tenderness. No Meningismus. Cardiovascular: Regular rate and rhythm with a normal S1 and S2. No gallops, murmurs, or rubs. Normal PMI, no JVD. No pulse deficits. Respiratory: Lungs have equal breath sounds bilaterally, clear to auscultation and percussion. No rales, rhonchi or wheezes noted. No increased work of breathing, no retractions or nasal flaring. Abdomen/GI: Soft, non-tender, with normal bowel sounds. No distension or tympany. No guarding or rebound. No evidence of tenderness throughout. Skin: Warm, dry with normal turgor. Normal color with no rashes, no lesions, and no evidence of cellulitis. Neuro: Awake and alert, GCS 15, oriented to person, place, time, and situation. Normal gait. 12:35 ENT: Posterior pharynx: erythema, that is mild, Vital Signs: 12:33 BP 118 / 86; Pulse 75; Resp 18; Temp 97.8; Pulse Ox 100% ; Weight 44.45 kg; Height 5 cm10 ft. 1 in. ; Pain 0/10; 12:33 Body Mass Index 18.52 (44.45 kg, 154.94 cm) cm10 12:33 Pain Scale: Adult cm10 MDM: 12:21 Patient medically screened. [facility] 13:55 Differential diagnosis: viral Infection, bacterial infection. Data reviewed: vital [facility] signs, nurses notes. Counseling: I had a detailed discussion with the patient and/or guardian regarding the historical points, exam findings, and any diagnostic results supporting the discharge/admit diagnosis, to return to the emergency department if symptoms worsen or persist or if there are any questions or concerns that arise at home. 10/19 12:39 Order name: Strep 7 10/19 13:38 Order name: Throat Culture EDMS Administered Medications: No medications were administered Disposition Summary: 10/19/23 13:52 Discharge Ordered Notes: Location: Home [facility] Problem: new [facility] Symptoms: are unchanged [facility] Condition: Stable [facility] Diagnosis - Acute pharyngitis, unspecified [facility] Followup: [facility] - With: Private Physician - When: 2 - 3 days - Reason: Recheck today's complaints Discharge Instructions: - Discharge Summary Sheet [facility] - Pharyngitis 7 - Sore Throat [facility] - Form - Excuse from Work, School, or Physical Activity [facility] Forms: - Medication Reconciliation Form [facility] - Thank You Letter [facility] - Antibiotic Education [facility] - Patient Portal Instructions [facility] - Leadership Thank You Letter [facility] Signatures: Dispatcher [employer] Franci Amaya FNP AMBULATORY SERVICE REPRESENTATIVE [facility] Laura Anaya RN RN cm10
[2023-10-19 14:06] VITALS: BP 118/86; TEMP 97.8; O2SAT 100
== END 2023-10-19 14:02 | disposition home or self-care (01) ==
LOC: ER 12:15
DX: J02.9 Acute pharyngitis, unspecified (principal)
CPT/HCPCS: 87070; 87081; 99283